=== PATIENT | female | born 1940 | race Caucasian/White ===

== ENCOUNTER 2016-10-19 07:03 | Inpatient (IN) | payer MEDICARE, OTHER ==
[~2016-10-19] VITALS: Ht 170.2 cm; Wt 64.7 kg
--- NOTE | 2016-10-19 07:15 | ED.REPORT ---
HPI-Trauma Minor / Fall Date of Service Oct 19, 2016 ED Provider: Nilo Hayes MD History of Present Illness: OCC A 76 year old female with a history of Alzheimer's disease is brought to the ED via EMS due to a fall. The pt reportedly fell on her right side while being assisted out of bed this morning. The pt reports hitting her head and now has mild head pain. She also admits to right arm pain. Per medics, the pt initially complained of right hip pain and was given pain medications. They found the right leg shortened and rotated. The pt resides in [facility]. Her last meal was yesterday. Nursing Notes Stated Complaint: FALL Nursing Notes Reviewed: Yes ([place], [employer] not reconciled) Allergies: Coded Allergies: Sulfa (Sulfonamide Antibiotics) (Verified Allergy, Severe, 10/19/16) General Time Seen by MD: 07:14 Chief Complaint Fall Hx Obtained From: Patient, EMS Arrived By: Ambulance Onset Occurred: 31 - 45 minutes ago Recent Healthcare: Recent doctor visit Similar Sx Previous: No Risk Factors Head CT Imaging Inclusion Criteria: >/= 16 yo age Patient Presents WITHOUT: Loss of Conciousness, PostTraumatic Amnesia Consider Non Contrast CT for: >/= 60 yo Age WITHOUT LOC WITHOUT PostTrauma AmnesiNo Auto vs Pedestrian, No Fall > 3ft., No Severe Headache, No Vomiting RF Statements: Risk factors reviewed Past Medical History Past Medical History Alzheimer's disease Hypertension Hypothyroidism Hyperlipidemia Past Surgical History none reported Smoking History Never Smoker Social History Other Social History: Lives in prison ([place]) Ambulatory Status Walker Review of Systems Unable to Obtain ROS Mental status Physical Exam Initial Vital Signs Vital Signs (First) Date Time Temp Pulse Resp B/P Pulse Ox O2 Delivery O2 Flow Rate FiO2 10/19/16 07:17 36.1 89 16 167/67 98 Room Air Initial VS: Reviewed, Unavailable General/Constitutional: Awake, Alert severely demented Neck: Atraumatic, Supple, Full range of motion Head / Eyes: Atraumatic, Normocephalic, PERRL, EOMI ENT: Atraumatic, Airway patent, Mucous membranes moist Respiratory / Chest: Atraumatic, Breath sounds NL, Breath sounds = bilat, No respiratory distress Cardiovascular: Heart rate NL, Regular rhythm, Heart sounds NL Abdomen: Atraumatic, Soft, Non-tender Back: Atraumatic, Full range of motion Upper Extremity / MS: Neurologic intact, Vascular intact can pronate and supinate the right elbow without clinical sign of fracture decreased range of motion of the right arm Lower Extremity / Pelvis / MS: Neurologic intact, Vascular intact shortened right leg with painful movement concerning for hip fracture Skin: Color NL, No rash, Warm, Dry abrasion on the nose abrasion on the right distal humerus Neurologic: Speech NL, No motor deficits, No sensory deficits Psychiatric: Affect NL, Mood NL Interpretation & Diagnostics Interpretation & Diagnostics: Right Humerus X-Ray: IMPRESSION: 1. Limited study demonstrates no definite fracture. Dictated by: Tawanda Nowak M.D. on 10/19/2016 at 8:30 Approved by: Tawanda Nowak M.D. on 10/19/2016 at 8:32 Hip/Pelvis X-Ray: IMPRESSION: 1. Comminuted and displaced right intertrochanteric fracture of the proximal femur as described. Dictated by: Tawanda Nowak M.D. on 10/19/2016 at 8:32 Approved by: Tawanda Nowak M.D. on 10/19/2016 at 8:34 Lab Results Interpretation Result Diagram: 10/19/16 0836 10/19/16 0836 Test 10/19/16 08:36 White Blood Count 9.7th/mm3 (3.8-10.1) Red Blood Count 3.83mil/mm3 (3.90-5.20) Hemoglobin 11.3g/dL (12.0-15.6) Hematocrit 33.5% (35.0-46.0) Mean Corpuscular Volume 87.5fL (81-100) Mean Corpuscular Hemoglobin 29.5pg (27.0-35.0) Mean Corpuscular Hemoglobin Concent 33.7% (32.0-37.0) Red Cell Distribution Width 14.5% (12.3-15.4) Platelet Count 267bil/L (150-400) Neutrophils (%) (Auto) 85.7% (40-74) Lymphocytes (%) (Auto) 8.1% (14-46) Monocytes (%) (Auto) 4.3% (4-12) Eosinophils (%) (Auto) 1.5% (0-5) Basophils (%) (Auto) 0.2% (0-3) Prothrombin Time 10.7sec (8.1-12.5) Prothromb Time International Ratio 1.00ratio Activated Partial Thromboplast Time 30.1sec (22.8-33.0) Sodium Level 137mEq/L (134-144) Potassium Level 4.3mEq/L (3.5-5.2) Chloride Level 102mEq/L (97-108) Carbon Dioxide Level 21mmol/L (18-29) Blood Urea Nitrogen 33mg/dL (8-27) Creatinine 1.10mg/dL (0.57-1.00) Estimat Glomerular Filtration Rate 69mL/min (>59) Glucose Level 163mg/dL (60-99) Calcium Level 8.9mg/dL (8.5-10.1) Total Bilirubin 0.2mg/dL (0.0-1.2) Aspartate Amino Transf (AST/SGOT) 16U/L (0-50) Alanine Aminotransferase (ALT/SGPT) 5U/L (0-32) Alkaline Phosphatase 109U/L (25-165) Total Protein 5.9g/dL (6.4-8.4) Albumin 3.6g/dL (3.4-5.0) Lab Results Interpretation: CBC normal Mild renal insufficiency X-Ray Chest Interpretation Chest Xray Interpretation: IMPRESSION: 1. Findings likely related to prior right upper lobectomy, with no prior postoperative films available for comparison. 2. Soft tissue fullness in the right hilum. Recurrent or metastatic disease cannot be excluded. Recommend comparison with prior outside studies or further evaluation with CT. Dictated by: Tawanda Nowak M.D. on 10/19/2016 at 8:34 Approved by: Tawanda Nowak M.D. on 10/19/2016 at 8:37 Interpretation / Wet Read by: Interpret - Radiologist CT Head Interpretation IMPRESSION: 1. No intracranial hemorrhage or calvarial fracture. 2. Age-related atrophy and chronic deep white matter ischemic changes. Atherosclerosis. Dictated by: Thierry Albright M.D. on 10/19/2016 at 8:16 Approved by: Thierry Albright M.D. on 10/19/2016 at 8:20 Interpretation / Wet Read by: Interpret - Radiologist Re-Eval/Medical Decision Med Decision/Clinical Course This is a 76-year-old demented female sent from [facility] after a ground- level fall that occurred as a return help her out of bed. The patient's unable provide any additional history, but is noted to have pain in the right hip, shortened and externally rotated right leg. Also some soreness in the right arm and bruising, as well as an abrasion to the face. Records obtained from the nursing facility indicate the patient is not on any anti-quadrants. Recall last oral intake was yesterday. A noncontrast head CT of the brain was negative. Plain radiographs of the humerus were negative for fracture. I do not appreciate an elbow or other fracture. However clinically the patient does have a right hip fracture. Abdomen no open wounds. The foot is neurovascularly intact. Plain radiographs demonstrate a displaced comminuted right intertrochanteric hip fracture. Pichardo has been ordered. The patient received titrated pain medication with fentanyl with good effect. The case is discussed with orthopedics and orthopedic repair later today as anticipated. The patient's being admitted to the hospitalist service for continued management. Source of Hx: Old records Re-Evaluation/Progress : Time of Eval: 07:14 Re-Evaluation/Progress Note: Pt informed of the plan for admission during the initial interview. Consultation #1: Consulted With: Orthopedic Call Returned at: 08:28 Make Up Operator Helper: Agrees with eval, Agrees with plan Note: Spoke with Dr. Anderson, orthopedic surgeon, regarding pt's case. Dr. Anderson agrees with the evaluation and agrees to consult. Consultation #2: Referral / Consult Name: Cam Mauro MD Consulted With: Hospitalist Call Returned at: 11:12 Note: Spoke with Dr. Mauro, hospitalist, regarding pt's case. Dr. Mauro agrees with the evaluation and agrees to admit the pt. Counseled Regarding: Diagnosis, Lab results, Need for admission Discharge & Departure Impression: Primary Impression: Closed right hip fracture Encounter type: initial encounter Qualified Code: S72.001A - Fracture of unspecified part of neck of right femur, initial encounter for closed fracture Additional Impressions: Fall from ground level Abrasion of right arm Encounter type: initial encounter Qualified Code: S40.811A - Abrasion of right upper arm, initial encounter Abrasion of face Encounter type: initial encounter Qualified Code: S00.81XA - Abrasion of other part of head, initial encounter Disposition: ADMITTED TO HOSPITAL Discharge Condition All VS Reviewed: Yes Condition: Stable Referrals: Maria Ines Giordano PA-C (PCP) Velia Nance MD (Family) Scribe Attestation Portions of this note were transcribed by Feliciano Guevara. I, Dr. Hayes personally performed the history, physical exam and medical decision-making; I reviewed and confirmed the accuracy of the information in the transcribed note. copies to: Maria Ines Giordano PA-C; Velia Nance MD, Matthew F MD Oct 19, 2016 07:15 FELICIANO GUEVARA Oct 19, 2016 07:26
[2016-10-19 07:17] VITALS: BP 167/67; PULSE 89; RESP 16; O2SAT 98
[2016-10-19] MEDS ORDERED: Lidocaine 2% 6mL Topical Jelly TOPICAL ONE (07:40)
[2016-10-19] MEDS ORDERED: Ondansetron 2 mg/mL 2 mL Inj IVPUSH ONE (07:40)
--- NOTE | 2016-10-19 08:22 | DRSVH ---
PROCEDURE: CT BRAIN WITHOUT CONTRAST ([id number]) INDICATIONS: fall TECHNIQUE: Noncontrast 4.5 mm thick angled axial sections acquired from the foramen magnum to the vertex, with c oronal reformats. COMPARISON: MRI brain 02/10/2016; MR stroke protocol 10/02/2014 FINDINGS: Image quality: Excellent. CSF spaces: Basal cisterns are patent. No extra-axial fluid collections. The ventricles are symmet alessandra in size and shape. Brain: No intracranial bleeds or masses. There is cerebral volume loss for age, with resultant vent ricular and sulcal prominence. There are periventricular and deep white matter chronic small vessel ischemic changes. There is intracranial internal carotid artery atherosclerosis. Skull and face: Calvarium and visualized facial bones appear intact, without suspicious lesions. Yazmin nges of prior cataract surgery. Sinuses: Visualized sinuses and mastoids are clear. There is a partially calcified intrinsic mass in the left maxillary sinus along the medial wall anteriorly. Prominent right joelle bullosa. Nasal sep jb deviation to the left. IMPRESSION: 1. No intracranial hemorrhage or calvarial fracture. 2. Age-related atrophy and chronic deep white matter ischemic changes. Atherosclerosis. Dictated by: Thierry Albright M.D. on 10/19/2016 at 8:16 Approved by: Thierry Albright M.D. on 10/19/2016 at 8:20
[2016-10-19] MEDS: fentaNYL-PF 50 mCg/mL 2 mL Inj IVPUSH PRN ×5 (08:26→20:32)
--- NOTE | 2016-10-19 08:37 | DRSVH ---
PROCEDURE: X-RAY RIGHT HUMERUS, MINIMUM TWO VIEWS ([id number]) INDICATIONS: fall TECHNIQUE: 4 views of the humerus were acquired. COMPARISON: [facility], CR, CHEST 1VW, 05/29/2007, 11:53. FINDINGS: Bones: Evaluation is limited due to suboptimal positioning secondary to limited patient movement. N o definite fractures or dislocations. Visualized osseous structures appear osteopenic. Soft tissues: The visualized lung demonstrates confluent opacity in the right upper lung zone. IMPRESSION: 1. Limited study demonstrates no definite fracture. Dictated by: Tawanda Nowak M.D. on 10/19/2016 at 8:30 Approved by: Tawanda Nowak M.D. on 10/19/2016 at 8:32
--- NOTE | 2016-10-19 08:37 | DRSVH ---
PROCEDURE: X-RAY PELVIS W/LAT HIP (RT) ([id number]) INDICATIONS: fall, R hip rotation TECHNIQUE: AP pelvis with frontal and lateral views of the right hip. COMPARISON: None. FINDINGS: Bones: There is a comminuted intertrochanteric fracture of the proximal right femur with mild lateral and anterior displacement. There is also proximal migration with varus angulation. Pelvic ring paula ears intact. No suspicious bony lesions. Soft tissues: The visualized bowel gas pattern is normal. No suspicious soft tissue calcifications. IMPRESSION: 1. Comminuted and displaced right intertrochanteric fracture of the proximal femur as described. Dictated by: Tawanda Nowak M.D. on 10/19/2016 at 8:32 Approved by: Tawanda Nowak M.D. on 10/19/2016 at 8:34
--- NOTE | 2016-10-19 08:38 | DRSVH ---
PROCEDURE: X-RAY CHEST ONE VIEW, PORTABLE ([id number]) INDICATIONS: fall, R hip rotation TECHNIQUE: One view of the chest was acquired. COMPARISON: [facility], , CHEST 1VW, 05/29/2007, 11:53. FINDINGS: Surgical changes and devices: There are surgical clips in the right hilum. Lungs and pleura: There is opacification of the superior right hemithorax with associated volume loss likely related to a right upper lobectomy. There is soft tissue fullness in the right hilum. Left lung appears clear. Mediastinum: There is rightward shift of the mediastinum. Heart size is normal. Bones and chest wall: No suspicious bony lesions. Overlying soft tissues appear unremarkable. IMPRESSION: 1. Findings likely related to prior right upper lobectomy, with no prior postoperative films availab le for comparison. 2. Soft tissue fullness in the right hilum. Recurrent or metastatic disease cannot be excluded. Re commend comparison with prior outside studies or further evaluation with CT. Dictated by: Tawanda Nowak M.D. on 10/19/2016 at 8:34 Approved by: Tawanda Nowak M.D. on 10/19/2016 at 8:37
[2016-10-19 08:50] LABS: BASOPHILS % (AUTO) 0.2 % (0-3); EOSINOPHILS % (AUTO) 1.5 % (0-5); MONOCYTES % (AUTO) 4.3 % (4-12); Mean Corpuscular Hemoglobin 29.5 pg (27.0-35.0); Mean Corpuscular Volume 87.5 fL (81-100); NEUTROPHILS % (AUTO) 85.7 % (40-74); Platelet Count 267 bil/L (150-400)
--- NOTE | 2016-10-19 09:11 | PCM.CONORT ---
Subjective Surgeon Admitting Provider: Attending Provider: Primary Care Physician:Maria Ines Giordano PA-C Other Provider: Reason for Consultation: Right hip pain Allergy Allergies: Coded Allergies: Sulfa (Sulfonamide Antibiotics) (Verified Allergy, Severe, 10/19/16) History History of ENT Problems?: No HEENT History: Denies:: Abnormal Airway Cataracts Difficult Intubation Dysphagia Glaucoma Hearing Problem Sinus Problem TMJ Denture Type: None Teeth Condition: Within Normal Limits Hx of Heart Problems?: No Cardiovascular History: Denies:: AICD Abdominal Aortic Aneurism Atrial Fibrillation Cardiac Surgery Chest Pain Congestive Heart Failure Coronary Artery Disease Edema Heart Murmur Hypertension Irregular Heartbeat Pacemaker Peripheral Vascular Rheumatic Fever Thrombophlebitis Valvular Heart Disease Hx of Respiratory Problem?: No Respiratory History: Denies:: Asthma COPD Chest Surgery Cough Dyspnea Emphysema Hemoptysis Oxygen Administration Pneumonia Pulmonary Embolism Tuberculosis Use of C-PAP Machine Use of Inhalers / NEBS Hx Neurologic Problems?: No Neurological History: Positive for:: Alzheimer's Disease Dementia Hx of GI Problems?: No Gastrointestinal History: Denies:: Cirrhosis Diverticulitis Gall Bladder Disease Gastroesphageal Reflux Gastrointestinal Bleeding Heartburn Hepatitis Hiatal Hernia Liver Disease Rectal Bleeding Hx of Problems?: Yes Genitourinary History: Positive for:: HX of Hemodialysis Kidney Stones Urinary Tract Infection Female Hx: Denies:: Currently Endometriosis Pelvic Inflammatory Problems with Breasts? Skin History: Denies:: History Skin Disorders? Pressure Ulcers Hx Musculoskeletal Problems?: Yes Other History/Comment Kristal Childers is a 76-year-old female patient who presents to our office for orthopedic evaluation of their right hip with ongoing symptoms. The patient states that their pain is a total in nature and mild/moderate in severity localized in the hip and groin without radiation. This has been progressing over the past several hours a fall from standing at her care facility. Moreover , the pain is exacerbated by activities, especially with ambulation and movement. She typically walks with assistance at all times with an occasional walker.. Rest seems to improve the symptoms. Patient reports associated symptoms with some stiffness, some swelling, with some weakness. There is no reports numbness, tingling, or weakness to the affected distal lower extremity. There is no known history of hip problems as a child/adolescent such as SCFE, Perthes, dysplasia, OI, or ligamentous laxity. The patient denies any fever, chills, nausea, vomiting, chest pain, shortness of breath, or calf tenderness. Work/hobbies/sports include: Presents with son who is the power of staff attorney She has a history of cancer with radiation treatment and has generalized weakness to the right side with no history of CVA. Per her son, she has a history of dementia, parkinsonism, and is unable to move her right arm actively given herpes zoster infection 8 years ago after treatment treatment. She has previous had a UTI which was treated and is currently asymptomatic. Psycho Social History: Denies:: Anxiety Bipolar Disorder Hx Depression Suicide Attempt Hx Surgeries?: Yes Other History/Comment TBD Other History: Positive for:: Cancer Smoking Status: Never Smoker Objective Exam Vital Signs & I/O Vital Sign- Last 8 Hours Date Time Temp Pulse Resp B/P Pulse Ox O2 Delivery O2 Flow Rate FiO2 10/19/16 07:17 36.1 89 16 167/67 98 Room Air Lab & Micro Results Laboratory Tests Test 10/19/16 08:36 White Blood Count 9.7th/mm3 (3.8-10.1) Red Blood Count 3.83mil/mm3 (3.90-5.20) Hemoglobin 11.3g/dL (12.0-15.6) Hematocrit 33.5% (35.0-46.0) Mean Corpuscular Volume 87.5fL (81-100) Mean Corpuscular Hemoglobin 29.5pg (27.0-35.0) Mean Corpuscular Hemoglobin Concent 33.7% (32.0-37.0) Red Cell Distribution Width 14.5% (12.3-15.4) Platelet Count 267bil/L (150-400) Neutrophils (%) (Auto) 85.7% (40-74) Lymphocytes (%) (Auto) 8.1% (14-46) Monocytes (%) (Auto) 4.3% (4-12) Eosinophils (%) (Auto) 1.5% (0-5) Basophils (%) (Auto) 0.2% (0-3) Result Diagram: 10/19/16 0836 Review of Systems: Constitutional: Negative, except as otherwise mentioned in the history above. Ophthalmologic: Negative, except as otherwise mentioned in the history above. Cardiovascular: Negative, except as otherwise mentioned in the history above. Respiratory: Negative, except as otherwise mentioned in the history above. Gastrointestinal: Negative, except as otherwise mentioned in the history above. Genitourinary: Negative, except as otherwise mentioned in the history above. Musculoskeletal: Negative, except as otherwise mentioned in the history above. Neurological: Negative, except as otherwise mentioned in the history above. Psychiatric: Negative, except as otherwise mentioned in the history above. Hematologic/Lymphatic: Negative, except as otherwise mentioned in the history above. Allergic/Immunologic: Negative, except as otherwise mentioned in the history above. H&P Surgical Exam Exam Musculoskeletal: CONST: WD,WN, NAD, A+OX3 OCULAR: EOMI, no conjunctivitis/icterus ENT: no deformities, scars or lesions CARDIAC: Pulse is regular. No cyanosis,clubbing,edema RESP: regular,unlabored MSK: normal light touch SPN/DPN/TN distributions. 4+5/5 DF/PF/Inv/Ev, 2+ DP Right HIP - scars.-+swelling, - erythema TTP GT- mild, shortened, external rotated, ROM logroll-painful Strength Deferred - calf tenderness thigh circ-equal, Signs Deferred MSK: normal light touch median, ulnar, radial, lateral antebrachial, axillary nerve distribution. Intact AIN, PIN, u, r, ax motor. C5-T1 intact, 2+ r/u pulse right elbow Small superficial abrasion to the right elbow, unable to range actively, passively 45-90 with pain ROM R/ L Resisted Strength/Pain deferred + painful arc, - crepitus Signs deferred Additional Information Two-view x-ray of the right hip demonstrates displaced intertrochanteric hip fracture with comminuted lesser trochanter avulsion Two-view x-ray of the right humerus demonstrates no grossly acute fracture or dislocation H&P Preop Plan Impression Right hip intertrochanteric fracture, right elbow abrasion with contusion Problems: Risks & Benefits * We have reviewed the risks and benefits as well as the alternatives to surgery. All questions were answered to the patient's satisfaction and a counseling note to that effect. The patient has provided informed consent. * I have counseled the patient regarding the deleterious effects that smoking during the perioperative period can have upon wound healing, infection rates, and the overall rate of complications. Plan Nonweightbearing right lower extremity Pain control recommend dedicated right elbow 3 view x-rays Nothing by mouth for surgery today Recommend left hip closed reduction intramedullary nail fixation Please optimize for surgery today Continue medical management per primary PT/OT DVT prophylaxis with RADHA hose and SCDs preoperatively with Xarelto postoperatively informed consent obtained today by son who is MAURI I reviewed my findings with the patient and her family. The patient remains symptomatic following the initial injury. In light of the ongoing symptoms, our plan is to proceed with surgical intervention. I have explained to the patient the nature of the surgery as well as the perioperative recovery including the risks, benefits and alternatives. A clear explanation was given to the patient regarding the condition present, and the available conservative and surgical options. It was emphasized that the risks and benefits of surgery include but are not limited to infection, wound healing problems, damage to adjacent structures such as nerves, blood vessels and tendons, terminal worker disability and pain, arthritis, hypersensitivity, deep vein thrombosis, pulmonary embolism, broken hardware, failure of surgery, need for further procedures at time of surgery or later, loss of limb, heart attack, stroke, and . The patient was given an explanation and the patient voiced understanding of what to expect after the procedure or surgery, the limitations in activities of daily living, the likely duration for post operative recovery and the instructions that are to be followed. At the end the patient was invited to seek clarification or ask further questions but there were none. I have advised the patient first that there are no guarantees as to outcome and that their ultimate improvement is largely based on the extent of the pre-existing underlying pathology. The patient was instructed to be n.p.o. The patients questions were answered and they stated understanding of the nature of the surgical procedure and gave written and verbal consent to proceed. The patient voiced understanding of the entire consultation. Isma Anderson MD Oct 19, 2016 09:11
[2016-10-19] MEDS ORDERED: CRAN500T PO (11:20)
[2016-10-19] MEDS ORDERED: CETI10TA27 PO (11:20)
[2016-10-19] MEDS ORDERED: DOCU-41 PO (11:20)
[2016-10-19] MEDS ORDERED: ACET325T51 PO (11:20)
[2016-10-19 11:28] VITALS: BP 117/53; PULSE 73
[2016-10-19] MEDS ORDERED: LORA1TAB PO (11:36)
[2016-10-19] MEDS ORDERED: ACET-171 PO (11:36)
[2016-10-19] MEDS ORDERED: SENN-133 PO (11:36)
[2016-10-19] MEDS ORDERED: LEVO50TA6 PO (11:36)
[2016-10-19] MEDS ORDERED: RAME8TAB10 PO (11:36)
[2016-10-19] MEDS ORDERED: ROSU5TAB9 PO (11:36)
[2016-10-19] MEDS ORDERED: ACET500C49 PO (11:36)
[2016-10-19 12:15] VITALS: BP 118/56; PULSE 72; RESP 14; O2SAT 96
[2016-10-19 14:17] LABS: APPEARANCE,URINE SLIGHTLY CLOUDY (CLEAR,HAZY); COLOR,URINE STRAW (YELLOW); OCCULT BLOOD,URINE NEGATIVE (NEGATIVE); PH,URINE 5.5 (5.0-8.0); UROBILINOGEN,URINE NORMAL (NORMAL)
[2016-10-19] MEDS ORDERED: HYDROmorphone 0.5 mg/0.5 mL iSecure Syringe IVPUSH PRN (14:45)
[2016-10-19] MEDS ORDERED: Ondansetron 2 mg/mL 2 mL Inj IVPUSH PRN (14:45)
[2016-10-19] MEDS ORDERED: Alum-Mag Hydrox-Simeth 30 mL Suspension PO PRN (14:45)
[2016-10-19 16:15] VITALS: BP 117/68; RESP 18; O2SAT 100
--- NOTE | 2016-10-19 16:29 | PCM.HPMED ---
Subjective Date of Service Oct 19, 2016 Primary Provider: Admitting Physician: Cam Mauro MD Primary Care Physician: Maria Ines Giordano PA-C Attending Physician: Cam Mauro MD Admit Status: From the Emergency Department, Admit to [facility] Team Chief Complaint: Right Leg Pain History of Present Illness: 76 year old pleasant female with a history of Dementia, Alzheimer's disease, cancer with radiation treatment and has generalized weakness to the right side with no history of CVA, HTN, HLD, Hypothyroidism, presenting after mechanical ground level fall sustaining injury to Right Hip and Right Upper Extremity. Pt was being assisted from bed to chair and caregiver lost a hold of her. She did hit her head, No LOC. Pt lives at [facility]. Pt was initially seen in Ortho Office. RLE found to be shortened with suspicion of fracture. Review of Systems: Could not obtain due to dementia. Pt did endorse pain in R Leg and Arm Allergies Coded Allergies: Sulfa (Sulfonamide Antibiotics) (Verified Allergy, Severe, 10/19/16) Home Medications Cetirizine 10 po am Docusate 100mg po prn qd Levothyroxine Lorazepam 1mg 0.5MG po hs prn Ramelteon 8mg po hs Rosuvastatin 5mg po qd Senna prn PMH Dementia, Alzheimer's disease, cancer with radiation treatment and has generalized weakness to the right side with no history of CVA, HTN, HLD, Hypothyroidism Surgical History RUL Lobectomy Family History No family of heart disease known Social History Hx Alcohol Use: Yes ("Very rarely") Hx Substance Use: No Hx Tobacco Use: No Smoking Status: Never Smoker Living Arrangement: Assisted Living Exam Vital Signs Vital Sign - Last Date Time Temp Pulse Resp B/P Pulse Ox O2 Delivery O2 Flow Rate FiO2 10/19/16 16:15 18 117/68 100 10/19/16 12:15 72 10/19/16 07:17 36.1 Room Air Exam Gen: NAD, AOx1- Baseline, dementia. HEENT: NCAT, PERRLA, EOMI, MMM, sclera anicteric. Neck: Soft, supple, no thyromegaly/JVD/LAD. Resp: CTAB, no R/R/W. CV: S1 S2, RRR, No M/R/G Abd: Soft, (+) BS, NT/ND, no guarding/rebound/organomegaly. Ext: +PP, No edema. RUE- TTP, dec ROM due to pain. RLE- +TTP, Leg shortened. Dec ROM. Skin: Skin tear R Elbow, Abrasion on nose. Neuro/Psych: Cooperative, appr mood/affect. CN II-XII grossly intact. No focal deficits. Lab and Diagnostics Result Diagram: 10/19/16 0836 10/19/16 0836 X-Rays, CTs and MRIs 10/19/16 0724 X-RAY PELVIS W/LAT HIP There is a comminuted intertrochanteric fracture of the proximal right femur with mild lateral and anterior displacement. There is also proximal migration with varus angulation. Pelvic ring appears intact. No suspicious bony lesions. Soft tissues: The visualized bowel gas pattern is normal. No suspicious soft tissue calcifications. IMPRESSION: 1. Comminuted and displaced right intertrochanteric fracture of the proximal femur as described. 10/19- X-RAY CHEST ONE VIEW, PORTABLE 1. Findings likely related to prior right upper lobectomy, with no prior postoperative films available for comparison. 2. Soft tissue fullness in the right hilum. Recurrent or metastatic disease cannot be excluded. Recommend comparison with prior outside studies or further evaluation with CT. Assessment & Plan 76 year old pleasant female with a history of Dementia, Alzheimer's disease, cancer with radiation treatment and has generalized weakness to the right side with no history of CVA, HTN, HLD, Hypothyroidism, presenting after mechanical ground level fall sustaining Right hip intertrochanteric fracture- #Right hip intertrochanteric fracture- POA, active. plan for Closed reduction intramedullary nail fixation. Surgery Recs- Nonweightbearing right lower extremity preop. NPO, -Post-Op Will need PT/OT. - DVT prophylaxis with RADHA hose and SCDs preoperatively with Xarelto postoperatively #Fall from Ground Level, mechanical- POA, active.. Pt has baseline weakness or RUE/RLE per son. Needs assistance from chair, fall occurred during lift. Sustained R Hip Fx and R See plan above. #ALEJO- present on admit, active. Scr 1.1 on admit. No known history of CKD. May be prerenal. Will continue with IVF. Get records from facility to obtain baseline Scr. #Hx of Lung Cancer s/p RUL Lobectomy- chronic stable. CXR- Soft tissue fullness in the right hilum. Recurrent or metastatic disease cannot be excluded. Recommend comparison with prior outside studies or further evaluation with CT #Alzheimer's disease- chronic stable- pt's hm med Ramelteon 8mg po hs not carried by pharmacy. Will ask son to bring in from home. Pt takes Lorazepam for insomnia, will hold for now to avoid delirum. Can give if agitated. #HLD- chronic, stable. c/w hm med statin once can take PO. #Hypothyroidism- chronic, stable. c/w hm med Levothyroxine CODE- Full, per son who is DOA. Son will bring in advanced directives. Pain Evaluation: Adequate Pain Control GI Prophylaxis: H2 bertha (r) VTE Mechanical Devices: Intermittant Pneumatic CD Resuscitation Status: CPR: Attempt Resuscitation Cam Mauro MD Oct 19, 2016 16:29
--- NOTE | 2016-10-19 16:38 | NUR ---
Pain/report Pt reporting pain "5/10" consistently. IV fentanyl given with positive results, but didn't last long. Pt having increasing R hip pain and Dilaudid given with minimal noticeable results. Pt's son at bedside and reports that patient has chronic R arm pain. Continue to monitor. Report called to Layne QUINONEZ.
[2016-10-19 16:40] VITALS: BP 137/64; PULSE 94; RESP 18; O2SAT 96
--- NOTE | 2016-10-19 16:45 | NUR ---
Admit Pt comes from ER with Right Fx hip wand right elbow skin tear. Alert to self, family, place & situation. Baseline dementia and baseline right sided weakness with right arm almost flacid. Denies numbness or tingling of finger or toes. Fx extremity pink and warm to touch. Denies CHest pain, nausea, or SOB. Endorses pain 5/10 at all times. Grimaces at times. Care continues Son at bedside
[2016-10-19] MEDS ORDERED: LORazepam 0.5 mg Tablet PO PRN (16:50)
[2016-10-19] MEDS ORDERED: Glucose 40% Oral Gel 15 Gm Tube PO PRN (17:10)
[2016-10-19] MEDS: Insulin LISPRO 300 Unit/3 mL Inj SUBQ SCH ×2 (17:30→21:59)
[2016-10-19] MEDS ORDERED: Dextrose 10% 250 ML IV PRN (17:35)
[2016-10-19] MEDS: cefTRIAXone Inj 1,000 MG in Dextrose 5% Minibag Plus 50 ML IV SCH (18:10)
[2016-10-19] MEDS: 0.9% Sodium Chloride 1,000 ML IV SCH (18:10)
[2016-10-20] VITALS (14 sets, daily range): BP systolic 96–133; BP diastolic 54–77; PULSE 96–110; RESP 12–18; O2SAT 96–100
--- NOTE | 2016-10-20 01:13 | NUR ---
Pain/ hourly rounding Patient received single dose of pain medication and has denied pain each round since, currently sleeping soundly. Bed in low position, call light within reach, intentional rounding.
[2016-10-20] MEDS: fentaNYL-PF 50 mCg/mL 2 mL Inj IVPUSH PRN ×2 (03:07→12:40)
[2016-10-20] MEDS: 0.9% Sodium Chloride 1,000 ML IV SCH ×3 (05:16→22:56)
[2016-10-20 05:35] LABS: BASOPHILS % (AUTO) 0.1 % (0-3); EOSINOPHILS % (AUTO) 0.2 % (0-5); MONOCYTES % (AUTO) 9.3 % (4-12); Mean Corpuscular Hemoglobin 28.6 pg (27.0-35.0); Mean Corpuscular Volume 87.6 fL (81-100); NEUTROPHILS % (AUTO) 81.6 % (40-74); Platelet Count 247 bil/L (150-400)
[2016-10-20] MEDS: Insulin LISPRO 300 Unit/3 mL Inj SUBQ SCH ×4 (08:00→22:00)
[2016-10-20] MEDS ORDERED: Ondansetron 2 mg/mL 2 mL Inj ONE (10:56)
[2016-10-20] MEDS ORDERED: FENTANYL 50 MCG/ML ONE (10:56)
[2016-10-20] MEDS ORDERED: Phenylephrine/NS 100 mCg/mL 10 mL Syringe IVPUSH ONE (10:56)
--- NOTE | 2016-10-20 12:48 | PCM.HPANE ---
Patient Data Surgeon Admitting Provider:Cam Mauro MD Attending Provider:Cam Mauro MD Primary Care Physician:Maria Ines Giordano PA-C Other Provider: Reason for Visit Rt Hip Fracture Ht/WT & BMI Height (Feet): 5 Height (Inches): 7.00 Weight (Kilograms): 64.700 Body Mass Index 22.39 Allergies Coded Allergies: Sulfa (Sulfonamide Antibiotics) (Verified Allergy, Severe, 10/19/16) Past Anesthesia History Anesthesia History: Denies:: Abnormal Airway, Anesthesia Reactions, Difficult Intubation Diabetes History Hx Diabetes?: Yes (prediabetic) Current Bedside Blood Glucose: 113 MRSA MRSA: Yes Medications Hypertension Medication: No Home Meds Incl Beta Elle: No Reported Medications Acetaminophen 500 Mg [id number] Mg PO Q4H PRN For Pain 10/19/16 Lorazepam 1 Mg Tablet0.5 Mg PO HS PRN For Insomnia Ref 0 10/19/16 Sennosides (Senna)8.6 Mg Brzwja37.2 Mg PO HS PRN For Constipation 10/19/16 Ramelteon (Rozerem)8 Mg Tablet8 Mg PO HS 10/19/16 Rosuvastatin Calcium 5 Mg Tablet5 Mg PO DAILY 10/19/16 Levothyroxine 50 Mcg Adbqru64 Mcg PO DAILY Ref 0 10/19/16 Docusate Sodium (Colace)100 Mg [id number] Mg PO HS PRN For Constipation Ref 0 10/19/16 Cranberry Fruit (Cranberry)500 Mg Tab.jfyk544 Mg PO DAILY 10/19/16 Cetirizine HCl (All Day Allergy)10 Mg Tab.chew10 Mg PO MORNING 10/19/16 Acetaminophen 325 Mg [id number] Mg PO MORNING Ref 0 10/19/16 Discontinued Reported Medications Acetaminophen 500 Mg Tnlvvd269 Mg PO Q4H PRN For Pain 10/19/16 History History of ENT Problems?: No HEENT History: Positive for:: Sinus Problem Denies:: Abnormal Airway Cataracts Difficult Intubation Dysphagia Glaucoma Hearing Problem TMJ Denture Type: None Teeth Condition: Within Normal Limits Hx of Heart Problems?: No Cardiovascular History: Denies:: AICD Abdominal Aortic Aneurism Atrial Fibrillation Cardiac Surgery Chest Pain Congestive Heart Failure Coronary Artery Disease Edema Heart Murmur Hypertension Irregular Heartbeat Pacemaker Peripheral Vascular Rheumatic Fever Thrombophlebitis Valvular Heart Disease Hx of Respiratory Problem?: Yes Respiratory History: Positive for:: Pneumonia Denies:: Asthma COPD Chest Surgery Cough Dyspnea Emphysema Hemoptysis Oxygen Administration Pulmonary Embolism Tuberculosis Use of C-PAP Machine Use of Inhalers / NEBS Other Resp Pertinent History: History of lung cancer, R lobectomy Hx Neurologic Problems?: Yes Neurological History: Positive for:: Dementia Parkinson's Disease (Parkinson symptoms) Denies:: Alzheimer's Disease CVA Dizziness Headaches Seizures Hx of GI Problems?: No Hx of Problems?: Yes Genitourinary History: Positive for:: Urinary Tract Infection Denies:: HX of Hemodialysis Kidney Stones HX of Peritoneal Dialysis: No Female Hx: Denies:: Currently Endometriosis Pelvic Inflammatory Problems with Breasts? Skin History: Denies:: History Skin Disorders? Pressure Ulcers Hx Musculoskeletal Problems?: No Musculoskeletal History: Denies:: Back Injury Joint Replacement Hx of Psycho/Social Problems?: No Psycho Social History: Positive for:: Anxiety Hx Depression Denies:: Bipolar Disorder Suicide Attempt Hx Surgeries?: Yes (bowel impaction) Other History: Positive for:: Cancer (lung cancer) Thyroid Disease History Blood Transfusions: Positive for:: Accept Blood Products? Denies:: Blood Transfusions Hx Diabetes: Yes (prediabetic)Bedside Blood Glucose: 113 Hx Alcohol Use: Yes ("Very rarely")Hx Substance Use: No Smoking Status: Never Smoker Stop/Bang Treated for Sleep Apnea?: No Do You Have a CPAP Machine?: No S-Snoring: Do You Snore Loudly: No T-Tired: feel tired, fatigued: Yes O-Obsered: Observed not breath: No P-Blood Pressure: treated: No B- Body Mass Index > 35 kg/m2: No A- Age over 50: Yes N- Neck Large Circumference: No G- Gender Male: No JENNIE Total Score: 1 JENNIE Risk Assessment: Low Risk, <3 Yes Risk Assessment Category Category 1A: Patient has history of documented sleep apnea, and HAS NOT received any narcotic, sedative or anesthesia administration during this stay. Category 1B: Patient has history of documented sleep apnea, and HAS received any narcotic , sedative or anesthesia administration during this stay Category 2: Patient has SUSPECTED Obstructive Sleep Apnea, and HAS received any narcotic , sedative or anesthesia administration during this stay. Category 3: Patient has SUSPECTED Obstructive Sleep Apnea and HAS NOT received narcotic, sedative or anesthesia administration during this stay. Category 4: Outpatient in Procedural Areas with known sleep apnea or who screen positive for High Risk via the STOP/BANG questionnaire. Exam Exam General Appearance: Oriented X3 HEENT/AIRWAY: MP 1 Lungs: Normal Air Movement Heart: Regular Rate/Rhythm Meds/Labs/Diagnostics Admission Meds Current Medications Rosuvastatin Calcium 5 mg 5 mg DAILY PO Last administered on 10/19/16 21:59; Start 10/19/16 at 20:30 Ceftriaxone Sodium 1000 mg/ Dextrose/Water 50 ml @ 100 mls/hr Q24H IV Last administered on 10/19/16 18:10; Start 10/19/16 at 18:00 Sodium Chloride (Normal Saline) 1,000 ml @ 100 mls/hr Q10H IV Last administered on 10/20/16 05:16; Start 10/19/16 at 17:25 Bedside Blood Glucose: 113 Labs Test 10/19/16 08:36 10/19/16 14:00 10/20/16 04:40 Prothrombin Time 10.7sec (8.1-12.5) Prothromb Time International Ratio 1.00ratio Activated Partial Thromboplast Time 30.1sec (22.8-33.0) Total Bilirubin 0.2mg/dL (0.0-1.2) Aspartate Amino Transf (AST/SGOT) 16U/L (0-50) Alanine Aminotransferase (ALT/SGPT) 5U/L (0-32) Alkaline Phosphatase 109U/L (25-165) Total Protein 5.9g/dL (6.4-8.4) Albumin 3.6g/dL (3.4-5.0) Urine Color Straw (YELLOW) Urine Appearance Slightly cloudy Urine pH 5.5 (5.0-8.0) Urine Specific [place] 1.020 (1.003-1.035) Urine Protein Negativemg/dL (NEG,TRACE) Urine Glucose (UA) Negativemg/dL (NEGATIVE) Urine Ketones Negativemg/dL (NEGATIVE) Urine Occult Blood Negative (NEGATIVE) Urine Nitrite Positive (NEGATIVE) Urine Bilirubin Negative (NEGATIVE) Urine Urobilinogen Normalmg/dL (NORMAL) Urine Leukocyte Esterase Moderate (NEGATIVE) Urine RBC 0-2/hpf (0-2) Urine WBC >50/hpf (0-5) Urine Epithelial Cells Occasional/hpf (NONE-MOD) Urine Crystals None seen (NONE SEEN) Urine Bacteria Many/hpf (NONE-FEW) Urine Hyaline Casts None/lpf (NONE) Urine Granular Casts None seen (NONE SEEN) Urine Waxy Casts None seen (NONE SEEN) Urine Red Blood Cell Casts None seen (NONE SEEN) Urine White Blood Cell Casts None seen (NONE SEEN) Urine Mucus Present (None Seen) Urine Trichomonas None seen (NONE SEEN) Urine Yeast None (NONE SEEN) Urinalysis Comment None Urine Culture Reflexed Indicated White Blood Count 8.5th/mm3 (3.8-10.1) Red Blood Count 3.15mil/mm3 (3.90-5.20) Hemoglobin 9.0g/dL (12.0-15.6) Hematocrit 27.6% (35.0-46.0) Mean Corpuscular Volume 87.6fL (81-100) Mean Corpuscular Hemoglobin 28.6pg (27.0-35.0) Mean Corpuscular Hemoglobin Concent 32.6% (32.0-37.0) Red Cell Distribution Width 14.6% (12.3-15.4) Platelet Count 247bil/L (150-400) Neutrophils (%) (Auto) 81.6% (40-74) Lymphocytes (%) (Auto) 8.7% (14-46) Monocytes (%) (Auto) 9.3% (4-12) Eosinophils (%) (Auto) 0.2% (0-5) Basophils (%) (Auto) 0.1% (0-3) Sodium Level 137mEq/L (134-144) Potassium Level 4.8mEq/L (3.5-5.2) Chloride Level 103mEq/L (97-108) Carbon Dioxide Level 21mmol/L (18-29) Blood Urea Nitrogen 30mg/dL (8-27) Creatinine 0.96mg/dL (0.57-1.00) Estimat Glomerular Filtration Rate 81mL/min (>59) Glucose Level 106mg/dL (60-99) Calcium Level 8.5mg/dL (8.5-10.1) Plan Impression Patient chart reviewed, patient interviewed and anesthestic plan with risks, benefits, and alternatives discussed, and informed consent obtained. ASA Physical Status: ASA3 Severe Disease Anesthetic Plan: GA Bene/Risks/Altern/Consents: Yes HP Complete Prior to Induction: Yes Maxime Javier MD Oct 20, 2016 12:48
--- NOTE | 2016-10-20 13:00 | NUR ---
OR Pt cleansed with chlorhex wipes prior to Sx. Fentanyl give prior to moving pt to get gown on. SL for transport. Family at bedside. Pt leaves floor for Sx with family at bedside.
[2016-10-20] MEDS ORDERED: Ropivacaine-PF 0.5% 30 mL Inj EPIDURAL ONE (13:43)
[2016-10-20] MEDS ORDERED: Vancomycin 1,000 mg Inj IRRIGATION ONE (13:43)
[2016-10-20] MEDS ORDERED: Lactated Ringer's 1,000 ML IV ONE (13:44)
[2016-10-20] MEDS ORDERED: Bacitracin 50,000 unit Inj IRRIGATION ONE (14:47)
--- NOTE | 2016-10-20 15:11 | PCM.PNMED ---
Subjective Date of Service Oct 20, 2016 Subjective Pt going to OR this AM. Denies pain but does grimace per nurse. Exam Vital Signs Vital Sign - Last Date Time Temp Pulse Resp B/P Pulse Ox O2 Delivery O2 Flow Rate FiO2 10/20/16 12:57 36.6 99 16 125/77 98 Room Air Intake and Output 10/19/16 10/19/16 10/20/16 Cumulative From/Thru 15:00 23:00 07:00 10/19/16 17:07 - 10/20/16 05:47 Intake Total 490 ml 1177 ml 1667 ml Output Total 750 ml 0 ml 750 ml Balance -260 ml 1177 ml 917 ml Intake Oral 490 ml 100 ml 590 ml IV Total 1077 ml 1077 ml Output Urine Total 750 ml 0 ml 750 ml Exam Gen: NAD, AOx1- Baseline, dementia. HEENT: NCAT, PERRLA, EOMI, MMM, sclera anicteric. Neck: Soft, supple, no thyromegaly/JVD/LAD. Resp: CTAB, no R/R/W. CV: S1 S2, RRR, No M/R/G Abd: Soft, (+) BS, NT/ND, no guarding/rebound/organomegaly. Ext: +PP, No edema. RUE- TTP, dec ROM due to pain. RLE- +TTP, Leg shortened. Dec ROM. Skin: Skin tear R Elbow, Abrasion on nose. Neuro/Psych: Cooperative, appr mood/affect. CN II-XII grossly intact. No focal deficits. IVs and Medications Medications Reviewed: Medications were reviewed in detail Lab and Diagnostics Result Diagram: 10/20/1643910/20/16439 Microbiology Laboratory Tests Test 10/20/16 04:40 White Blood Count 8.5th/mm3 (3.8-10.1) Red Blood Count 3.15mil/mm3 (3.90-5.20) Hemoglobin 9.0g/dL (12.0-15.6) Hematocrit 27.6% (35.0-46.0) Mean Corpuscular Volume 87.6fL (81-100) Mean Corpuscular Hemoglobin 28.6pg (27.0-35.0) Mean Corpuscular Hemoglobin Concent 32.6% (32.0-37.0) Red Cell Distribution Width 14.6% (12.3-15.4) Platelet Count 247bil/L (150-400) Neutrophils (%) (Auto) 81.6% (40-74) Lymphocytes (%) (Auto) 8.7% (14-46) Monocytes (%) (Auto) 9.3% (4-12) Eosinophils (%) (Auto) 0.2% (0-5) Basophils (%) (Auto) 0.1% (0-3) Sodium Level 137mEq/L (134-144) Potassium Level 4.8mEq/L (3.5-5.2) Chloride Level 103mEq/L (97-108) Carbon Dioxide Level 21mmol/L (18-29) Blood Urea Nitrogen 30mg/dL (8-27) Creatinine 0.96mg/dL (0.57-1.00) Estimat Glomerular Filtration Rate 81mL/min (>59) Glucose Level 106mg/dL (60-99) Calcium Level 8.5mg/dL (8.5-10.1) Microbiology 10/19/16 Urine Culture - Preliminary, Resulted X-Rays, CTs and MRIs 10/19/16 0724 X-RAY PELVIS W/LAT HIP There is a comminuted intertrochanteric fracture of the proximal right femur with mild lateral and anterior displacement. There is also proximal migration with varus angulation. Pelvic ring appears intact. No suspicious bony lesions. Soft tissues: The visualized bowel gas pattern is normal. No suspicious soft tissue calcifications. IMPRESSION: 1. Comminuted and displaced right intertrochanteric fracture of the proximal femur as described. 10/19- X-RAY CHEST ONE VIEW, PORTABLE 1. Findings likely related to prior right upper lobectomy, with no prior postoperative films available for comparison. 2. Soft tissue fullness in the right hilum. Recurrent or metastatic disease cannot be excluded. Recommend comparison with prior outside studies or further evaluation with CT. Assessment & Plan 76 year old pleasant female with a history of Dementia, Alzheimer's disease, cancer with radiation treatment and has generalized weakness to the right side with no history of CVA, HTN, HLD, Hypothyroidism, presenting after mechanical ground level fall sustaining Right hip intertrochanteric fracture- #Right hip intertrochanteric fracture- POA, active. plan for Closed reduction intramedullary nail fixation. Surgery Recs- Nonweightbearing right lower extremity preop. NPO, -Post-Op Will need PT/OT. - DVT prophylaxis with RADHA pretty and SCDs preoperatively with Xarelto postoperatively to start in AM on 8. #Fall from Ground Level, mechanical- POA, active.. Pt has baseline weakness or RUE/RLE per son. Needs assistance from chair, fall occurred during lift. Sustained R Hip Fx and R See plan above. #ALEJO- present on admit, active. Scr 1.1 on admit->0.9. No known history of CKD. May be prerenal. Will continue with IVF. #UTI- pt has evidence of pyuria on UA. Due to dementia can't determine if Symptomatic. Will tx as UTI as undergoing surgery. Ceftriaxone for 3 days, started 10/19, unless longer course indicated. #Hx of Lung Cancer s/p RUL Lobectomy- chronic stable. CXR- Soft tissue fullness in the right hilum. Recurrent or metastatic disease cannot be excluded. Recommend comparison with prior outside studies or further evaluation with CT #Alzheimer's disease- chronic stable- pt's hm med Ramelteon 8mg po hs not carried by pharmacy. Will ask son to bring in from home. Pt takes Lorazepam for insomnia, will hold for now to avoid delirum. Can give if agitated. #HLD- chronic, stable. c/w hm med statin once can take PO. #Hypothyroidism- chronic, stable. c/w hm med Levothyroxine CODE- Full, per son who is DOA. Son will bring in advanced directives. GI Prophylaxis: H2 bertha (r) VTE Mechanical Devices: Intermittant Pneumatic CD Resuscitation Status: CPR: Attempt Resuscitation Cam Mauro MD Oct 20, 2016 15:11
[2016-10-20] MEDS ORDERED: Sodium Biphos-Phos 133 mL Enema RECTAL PRN (15:30)
[2016-10-20] MEDS ORDERED: diphenhydrAMINE 25 mg Capsule PO PRN (15:30)
[2016-10-20] MEDS ORDERED: Polyethylene Glycol (PEG) 17 Gm Powder PO PRN (15:30)
[2016-10-20] MEDS ORDERED: Magnesium Hydroxide 10 mL Oral Concentration PO PRN (15:30)
--- NOTE | 2016-10-20 15:40 | PCM.ORTHOP ---
Orthopedic Operative Report Date of Service: Oct 20, 2016 Pre Operative Diagnosis right hip displaced comminuted intertrochanteric fracture Post Operative Diagnosis Same Procedure Right hip closed reduction intramedullary nail fixation Surgeon Surgeon: Isma Anderson Assistants: None Indication for Procedure Right hip fracture Findings Right intertrochanteric hip fracture Details of Procedure Implant: 43H200 deg 400mm right TFNA 95mm lag screw 42mm X5mm locking screw Indications: This is Kristal Childers who is a 76-year-old female status-post a right intertrochanteric hip fracture. The risks versus benefits of open reduction and internal fixation were discussed with the patient in detail. The patient voiced understanding of the risks and agreed to proceed. The risks discussed were pain, bleeding, infection, damage to neurovascular structures, failure of procedure, need for further procedures, loss of limb function, loss of limb, heart attack, stroke, and . Verbal and written consent were obtained. Description of Operation: The patient was brought to the operating room. Patient name and surgical site were confirmed. Preoperative antibiotics were given. General anesthesia was administered. The patient was placed supine on the fracture table in the standard fashion. All bony prominences were well padded. Traction was applied to the operative leg and the fracture was closed reduced under C-arm guidance. The leg and hip were then prepped and draped in the usual sterile fashion. A small longitudinal incision was made proximal to the greater trochanter. Subcutaneous dissection was bluntly performed down to the tip of the greater trochanter. A 3.2 mm guide pin was then placed through the tip of the greater trochanter and into the femoral canal under fluoroscopic guidance. This was checked in both AP and lateral views. This pin was then over-reamed with a 17 mm reamer. The ball tipped guide wire was placed into the medullary canal and advanced into the center of the distal metaphysis. The guide wire was then over-reamed in 0.5 mm increments until bony chatter was achieved at the isthmus. A tire gauge was used to determine the length of the nail. The nail implant was loaded onto the insertion jig and then gently malleted into position over the guide wire. The fracture was well reduced as confirmed with C-arm in AP and lateral views. The guide was removed. The guide pin for the hip screw was inserted to a point within 25 mm tip-to-apex distance on AP and lateral views. A hip screw size was selected along with a compression screw. The lateral cortex was drilled for the compression screw. The guide pin was then overdrilled and the hip screw was inserted with clear compression at the fracture once the compression screw inserted and engaged. The traction was removed and orthogonal views with fluoroscopy determined reduction of our fracture with appropriate placement of hip screw centered with a tip-to-apex distance less than 25 mm. The distal interlocking screw was then inserted in the standard fashion using the perfect [place] technique under C-arm guidance. All wounds were thoroughly irrigated by bulb irrigation. Hemostasis was obtained with electrocautery. The fascia was closed with 0 Vicryl suture. The subcutaneous space was closed with interrupted 2-0 Vicryl suture. The skin was closed with interrupted peggy. Hard copy radiographs confirmed adequate reduction and placement of hardware. The patient was extubated without difficulty and transferred to the PACU in stable condition. I was present and scrubbed for the entire procedure. You may weight bear as tolerated. Keep your wound clean, dry and intact. We will change your dressing in 2 days and continue daily dressing changes. PT/OT will be ordered. Return to clinic in 2 weeks with me with 2 view x-rays and staple/suture removal with Steri-Strips application. You may get your wound wet at that time. We will progress weightbearing to full without restrictions once radiographic healing noted at 6-10 weeks. Please keep the affected extremity elevated when possible. You may use ice and/or heat as needed for comfort. All questions and concerns were addressed. Please feel free to call with any further questions, comments, and/or concerns. You will take Xarelto 10mg X 35 days Grafts, Implants: Implants-See Implant Record Complications There were no periprocedural complications identified. Condition Stable Anesthetic Administered: GA Catheters: None Output, Estimated Blood Loss: 10 Blood Admin during surgery: No Surgical Cast or Splint: Other Surgical Specimen Removed: No Specimen sent to Pathology: No copies to: Isma Anderson MD, Christopher L MD Oct 20, 2016 15:40
--- NOTE | 2016-10-20 16:38 | NUR ---
Patient returned from Sx. Addendum: 10/20/16 at 1735 by MILTON GARCIA Pt. on RA, no chest pain, no SOB, no complaints of pain. R hip dressing clean, dry, bulky ABD. SCD placed on L leg.
[2016-10-20] MEDS ORDERED: Lactated Ringer's 1,000 ML IV SCH (16:45)
[2016-10-20] MEDS ORDERED: Phenylephrine 10,000 mCg/mL Inj IVPUSH PRN (16:45)
[2016-10-20] MEDS ORDERED: Lactated Ringer's 500 ML IV PRN (16:45)
[2016-10-20] MEDS ORDERED: Dexamethasone 4 mg/mL Inj IVPUSH PRN (16:45)
[2016-10-20] MEDS ORDERED: EPHEDrine Sulfate 50 mg/mL Inj IVPUSH PRN (16:45)
[2016-10-20] MEDS ORDERED: HYDROmorphone 1 mg/mL Inj IVPUSH PRN (16:45)
[2016-10-20] MEDS ORDERED: fentaNYL-PF 50 mCg/mL 2 mL Inj IVPUSH PRN (16:45)
[2016-10-20] MEDS ORDERED: Ondansetron 2 mg/mL 2 mL Inj IVPUSH PRN (16:45)
[2016-10-20] MEDS: Lactated Ringer's 1,000 ML IV SCH (17:44)
[2016-10-20] MEDS: CeFAZolin Inj 2 GM in IV Premix 1 EACH IV SCH (17:45)
[2016-10-20] MEDS ORDERED: 0.9% Sodium Chloride 250 ML ONE (20:19)
[2016-10-20] MEDS: cefTRIAXone Inj 1,000 MG in Dextrose 5% Minibag Plus 50 ML IV SCH (20:27)
[2016-10-20] MEDS: Senna-Docusate 8.6-50 mg Tablet PO SCH (20:31)
[2016-10-21] VITALS (8 sets, daily range): BP systolic 90–107; BP diastolic 48–69; PULSE 87–107; RESP 14–18; O2SAT 95–97
[2016-10-21] MEDS: CeFAZolin Inj 2 GM in IV Premix 1 EACH IV SCH (02:53)
[2016-10-21 05:37] LABS: BASOPHILS % (AUTO) 0 % (0-3); EOSINOPHILS % (AUTO) 0.5 % (0-5); MONOCYTES % (AUTO) 16.5 % (4-12); Mean Corpuscular Hemoglobin 29.2 pg (27.0-35.0); Mean Corpuscular Volume 87.9 fL (81-100); NEUTROPHILS % (AUTO) 73.4 % (40-74); Platelet Count 197 bil/L (150-400)
--- NOTE | 2016-10-21 06:11 | NUR ---
ortho Sensation intact. Dressing dry. Denies pain overnight. B/P remains low 93/55 with HR 102 this morning. H/H 7.5 & 22.6 Asymptomatic. PRN Bolus 250ml available for B/p less than 90. IVF LR at 80 infusing.
[2016-10-21] MEDS: Lactated Ringer's 1,000 ML IV SCH ×2 (06:47→18:05)
[2016-10-21] MEDS: Insulin LISPRO 300 Unit/3 mL Inj SUBQ SCH ×4 (08:00→22:00)
[2016-10-21] MEDS: Senna-Docusate 8.6-50 mg Tablet PO SCH ×2 (09:01→21:45)
[2016-10-21] MEDS: Ketorolac 15 mg/mL Inj IVPUSH PRN ×2 (09:03→15:38)
[2016-10-21] MEDS: 0.9% Sodium Chloride 1,000 ML IV SCH ×2 (09:25→19:25)
--- NOTE | 2016-10-21 09:45 | NUR ---
CON signed by son.
[2016-10-21 10:34] LABS: BASOPHILS % (AUTO) 0 % (0-3); EOSINOPHILS % (AUTO) 0.4 % (0-5); Mean Corpuscular Hemoglobin 29.1 pg (27.0-35.0); Mean Corpuscular Volume 88.2 fL (81-100); Platelet Count 176 bil/L (150-400)
--- NOTE | 2016-10-21 11:18 | NUR ---
Evaluation completed. Please go to "Notes" then click on "Assessments and Notes" (bottom left corner of screen). Then select appropriate discipline tab on top of screen.
[2016-10-21] MEDS ORDERED: 0.9% Sodium Chloride 250 ML IV ONE (12:55)
--- NOTE | 2016-10-21 13:05 | PCM.PNORTH ---
Subjective Date of Service: Oct 21, 2016 Visit Information: Reason for Visit Rt Hip Fracture Surgery/Surgery Date Post-Op Day # Date of Admission: Oct 19, 2016 at 14:35 Hospital Day # Subjective Found patient awake this morning with head of bed elevated. Patient is well- positioned. Patient is very minimally communicative and maintains a blank expression. She will attempt to follow directions and does have told movement but this is very difficult to elicit on command. Patient's son, Tal, is in attendance at bedside at all times and is very helpful furnishing a great deal of information. He has related that patient's right arm is essentially nonfunctional secondary to a herpetic neuralgia suffered at some point in her past after cancer treatment. He is aware the patient will likely discharge to fdc facility on postop day #3. Postop General: No Complaints, No Shortness of Breath, No Chest Pain Pain Management: IV Push (Toradol) Objective Exam Objective Alert and minimally interactive Hemoglobin 7.4, hematocrit 22.4 Mildly Hypotensive Borderline tachycardic No SOB noted on physical exam. Interoperative dressing is mildly soiled and intact Calf and thigh are soft and nontender Toe wiggle and sensation are intact at right lower extremity distally Pichardo catheter is present SCDs are absent Bilateral thigh-high RADHA hose are absent Vital Signs and I/O Vital Sign - Last Date Time Temp Pulse Resp B/P Pulse Ox O2 Delivery O2 Flow Rate FiO2 10/21/16 08:32 36.9 101 18 93/60 95 Room Air 10/20/16 15:20 10 Intake and Output 10/20/16 10/20/16 10/21/16 Cumulative From/Thru 15:00 23:00 07:00 10/19/16 17:07 - 10/21/16 06:03 Intake Total 400 ml 300 ml 1060 ml 3427 ml Output Total 200 ml 810 ml 680 ml 2440 ml Balance 200 ml -510 ml 380 ml 987 ml Intake Oral 200 ml 150 ml 940 ml IV Total 400 ml 100 ml 910 ml 2487 ml Output Urine Total 100 ml 800 ml 680 ml 2330 ml Estimated Blood Loss 100 ml 10 ml 110 ml # Bowel Movements 0 0 Lab & Micro Results Laboratory Tests Test 10/21/16 04:37 10/21/16 10:15 White Blood Count 5.8th/mm3 (3.8-10.1) 5.6th/mm3 (3.8-10.1) Red Blood Count 2.57mil/mm3 (3.90-5.20) 2.54mil/mm3 (3.90-5.20) Hemoglobin 7.5g/dL (12.0-15.6) 7.4g/dL (12.0-15.6) Hematocrit 22.6% (35.0-46.0) 22.4% (35.0-46.0) Mean Corpuscular Volume 87.9fL (81-100) 88.2fL (81-100) Mean Corpuscular Hemoglobin 29.2pg (27.0-35.0) 29.1pg (27.0-35.0) Mean Corpuscular Hemoglobin Concent 33.2% (32.0-37.0) 33.0% (32.0-37.0) Red Cell Distribution Width 14.4% (12.3-15.4) 14.5% (12.3-15.4) Platelet Count 197bil/L (150-400) 176bil/L (150-400) Neutrophils (%) (Auto) 73.4% (40-74) 79.0% (40-74) Lymphocytes (%) (Auto) 9.4% (14-46) 8.2% (14-46) Monocytes (%) (Auto) 16.5% (4-12) 12.0% (4-12) Eosinophils (%) (Auto) 0.5% (0-5) 0.4% (0-5) Basophils (%) (Auto) 0% (0-3) 0% (0-3) Microbiology 10/19/16 Urine Culture - Final, Complete E. Coli Esbl Pit Tanner Result Diagram: 10/21/16 1015 10/20/16 0440 General Appearance: Cooperative, No Acute Distress Extremities: No Compartment Syndrom Noted, Thigh & Calf Soft/Nontender Postop Sensory Motor: Movement in Toes, Distal Sensation Intact Activity: Activity per PT, Ambulate with PT (weightbearing as tolerated on the right lower extremity. Note: Patient's right upper extremity is dysfunctional secondary to herpetic neuralgia suffered post cancer treatment. ) Catheters: Urethral 2 Way Pichardo Assessment & Plan Impression Patient is a 76-year-old female who suffered a right hip fracture and undergone a right hip long IM nail placement on 10/20/[address] Isma Anderson. Patient is minimally communicative. Patient's son Tal is in attendance at bedside and is helpful. Problems: Plan Patient is a 76-year-old female who suffered a right hip fracture and undergone a right hip long IM nail placement on 10/20/[address] Isma Anderson. Hemoglobin 7.4, hematocrit 22.4 Mildly Hypotensive Borderline tachycardic No SOB noted on physical exam Continue weightbearing as tolerated on the right lower extremity using appropriate assistive device per physical therapist. Continue formal physical therapy for mobility, gait and safety. Continue pain medication as needed moving to by mouth pain medication as soon as possible. Continue Xarelto 10 mg daily 35 days postop for DVT prophylaxis. Interoperative dressing will be changed by orthopedics on postop day #2 Social service order has been placed for discharge to fdc facility. Nursing please move the patient to by mouth pain medication as soon as possible Nursing please measure and fit bilateral thigh-high RADHA hose as ordered today. Right may be fluid after dressing change on postop day #2. Nursing please fit patient with left SCD. Follow-up in 2 weeks at [facility] orthopedic clinic with Dr. Isma reinoso for wound check and suture removal Follow-up in 6 weeks at [facility] orthopedic clinic with Dr. Isma reinoso with right two-view femur x-rays on arrival. Anticipate discharge to fdc facility by hospitalist service on postop day #3, 10/23/2016. VTE Prophylaxis: Other (Xarelto 10 mg by mouth daily 35 days postop for DVT prophylaxis) Resuscitation Status: CPR: Attempt Resuscitation Luis Miguel Winkler PA-C Oct 21, 2016 13:05
--- NOTE | 2016-10-21 13:40 | PCM.PNMED ---
Subjective Date of Service Oct 21, 2016 Subjective Pt c/o of pain R Hip at site of surgery. Exam Vital Signs Vital Sign - Last Date Time Temp Pulse Resp B/P Pulse Ox O2 Delivery O2 Flow Rate FiO2 10/21/16 13:17 36.9 105 14 90/48 97 Room Air 10/20/16 15:20 10 Intake and Output 10/20/16 10/20/16 10/21/16 Cumulative From/Thru 15:00 23:00 07:00 10/19/16 17:07 - 10/21/16 06:03 Intake Total 400 ml 300 ml 1060 ml 3427 ml Output Total 200 ml 810 ml 680 ml 2440 ml Balance 200 ml -510 ml 380 ml 987 ml Intake Oral 200 ml 150 ml 940 ml IV Total 400 ml 100 ml 910 ml 2487 ml Output Urine Total 100 ml 800 ml 680 ml 2330 ml Estimated Blood Loss 100 ml 10 ml 110 ml # Bowel Movements 0 0 Exam Gen: NAD, AOx1- Baseline, dementia. HEENT: NCAT, PERRLA, EOMI, MMM, sclera anicteric. Neck: Soft, supple, no thyromegaly/JVD/LAD. Resp: CTAB, no R/R/W. CV: S1 S2, RRR, No M/R/G Abd: Soft, (+) BS, NT/ND, no guarding/rebound/organomegaly. Ext: +PP, No edema. RUE- non-functional- baseline, R Thigh & Calf Soft/Nontender Lab and Diagnostics Result Diagram: 10/21/16 1015 10/20/16 0440 Microbiology Laboratory Tests Test 10/20/16 04:40 White Blood Count 8.5th/mm3 (3.8-10.1) Red Blood Count 3.15mil/mm3 (3.90-5.20) Hemoglobin 9.0g/dL (12.0-15.6) Hematocrit 27.6% (35.0-46.0) Mean Corpuscular Volume 87.6fL (81-100) Mean Corpuscular Hemoglobin 28.6pg (27.0-35.0) Mean Corpuscular Hemoglobin Concent 32.6% (32.0-37.0) Red Cell Distribution Width 14.6% (12.3-15.4) Platelet Count 247bil/L (150-400) Neutrophils (%) (Auto) 81.6% (40-74) Lymphocytes (%) (Auto) 8.7% (14-46) Monocytes (%) (Auto) 9.3% (4-12) Eosinophils (%) (Auto) 0.2% (0-5) Basophils (%) (Auto) 0.1% (0-3) Sodium Level 137mEq/L (134-144) Potassium Level 4.8mEq/L (3.5-5.2) Chloride Level 103mEq/L (97-108) Carbon Dioxide Level 21mmol/L (18-29) Blood Urea Nitrogen 30mg/dL (8-27) Creatinine 0.96mg/dL (0.57-1.00) Estimat Glomerular Filtration Rate 81mL/min (>59) Glucose Level 106mg/dL (60-99) Calcium Level 8.5mg/dL (8.5-10.1) Microbiology 10/19/16 Urine Culture - Preliminary, Resulted X-Rays, CTs and MRIs 10/19/16 0724 X-RAY PELVIS W/LAT HIP There is a comminuted intertrochanteric fracture of the proximal right femur with mild lateral and anterior displacement. There is also proximal migration with varus angulation. Pelvic ring appears intact. No suspicious bony lesions. Soft tissues: The visualized bowel gas pattern is normal. No suspicious soft tissue calcifications. IMPRESSION: 1. Comminuted and displaced right intertrochanteric fracture of the proximal femur as described. 10/19- X-RAY CHEST ONE VIEW, PORTABLE 1. Findings likely related to prior right upper lobectomy, with no prior postoperative films available for comparison. 2. Soft tissue fullness in the right hilum. Recurrent or metastatic disease cannot be excluded. Recommend comparison with prior outside studies or further evaluation with CT. Assessment & Plan 76 year old pleasant female with a history of Dementia, Alzheimer's disease, cancer with radiation treatment and has generalized weakness to the right side with no history of CVA, HTN, HLD, Hypothyroidism, presenting after mechanical ground level fall sustaining Right hip intertrochanteric fracture- #Right hip intertrochanteric fracture- POA, active. plan for Closed reduction intramedullary nail fixation. Surgery 10/21- Recs- Continue weightbearing as tolerated on the right lower extremity using appropriate assistive device per physical therapist. Continue formal physical therapy for mobility, gait and safety. Continue pain medication as needed moving to by mouth pain medication as soon as possible. Continue Xarelto 10 mg daily 35 days postop for DVT prophylaxis. Interoperative dressing will be changed by orthopedics on postop day #2 Social service order has been placed for discharge to halfway facility. #Fall from Ground Level, mechanical- POA, active.. Pt has baseline weakness or RUE/RLE per son. Needs assistance from chair, fall occurred during lift. Sustained R Hip Fx and R See plan above. #Acute Blood Loss Anemia, resolved.. s/p post-op. Pt hb has dec >2 points from baseline. +fatigued. Pt is also hypotensive and tachycardic. Will give 1u pRBC for symptomatic anemia. Can recheck HB in am. #ALEJO- present on admit, active. Scr 1.1 on admit->0.9. No known history of CKD. May be prerenal. Will continue with IVF. #UTI- pt has evidence of pyuria on UA. Due to dementia can't determine if Symptomatic. Will tx as UTI as undergoing surgery. Ceftriaxone for 3 days, started 10/19, unless longer course indicated. #Hx of Lung Cancer s/p RUL Lobectomy- chronic stable. CXR- Soft tissue fullness in the right hilum. Recurrent or metastatic disease cannot be excluded. Recommend comparison with prior outside studies or further evaluation with CT #Dementia- documented Alzeimer's and Parkinson's disease- chronic stable- obtained hm med from facility which is Carbidopa-Levodopa. Pharmacy has confirmed med rec and updated. Will start. - Ramelteon not carried on formulary, son will bring from facility. #HLD- chronic, stable. c/w hm med statin once can take PO. #Hypothyroidism- chronic, stable. c/w hm med Levothyroxine CODE- Full, per son who is DOA. Son will bring in advanced directives. Dispo - plan for d/c to SNF on 10/23 formal physical therapy for mobility, gait and safety. - Follow-up in 2 weeks at [facility] orthopedic clinic with Dr. Isma Anderson for wound check and suture removal - Follow-up in 6 weeks at [facility] orthopedic clinic with Dr. Christopher Sheu with right two-view femur x-rays on arrival GI Prophylaxis: H2 bertha (r) VTE Prophylaxis: Other (Xarelto 10 mg by mouth daily 35 days postop for DVT prophylaxis) VTE Mechanical Devices: Intermittant Pneumatic CD (LLE only ) Resuscitation Status: CPR: Attempt Resuscitation Cam Mauro MD Oct 21, 2016 13:40
--- NOTE | 2016-10-21 16:55 | NUR ---
Social Work: Initial Assessment/Multi-Disciplinary Rounds D: EMR reviewed. Please see Initial Assessment linked to this note for more information. Pt is an 76 y/o female admitted for right hip fracture per H&P. Pt has a readmit risk score of 3. PIO met with pt and son/DPWANDA Parada [phone] at bedside to conduct initial assessment. Pt is not an accurate historian. Pt has dementia at baseline. SW explained role and wrote phone number on white board. SW provided "Your Discharge Planning Checklist" and encouraged family to contact SW for any discharge planning questions. Pt's insurance is Medicare and [employer]. PCP is oJann Giordano PA-C. DPOA/advanced directive ppw discussed - ppw completed and SW encouraged pt to provide a copy to the hospital. Pt's son stated pt does not own or use any DME - attendants assist with all of pt's ADLs at [facility] where pt resides. Pt discussed in multidisciplinary rounds. Per multidisciplinary rounds, pt is not medically stable for discharge. PIO received MD order for SNF placement. SW discussed MD recommendations with pt's son and provided SNF choice list. SW will follow-up with pt's son regarding choice tomorrow and make referral(s). A: PIO assessed pt's capacity for self-care. Pt does not have capacity for self-care at baseline. Pt requires assistance with all ADLs and lives at [facility]. Pt's family agreeable to SNF at discharge and then back to [facility] once she has completed rehab at SNF. PIO discussed pt's capacity to retain information/teaching for skillable needs. Pt's son states that [facility] is open with pt for RN and PT and pt has made progress with right arm mobility with [facility]. Pt's son states that pt can retain information and would be appropriate for SNF. P: SW to follow-up with pt's SNF choice(s) tomorrow and make referral(s) accordingly. SW to update MD/PT in rounds regarding mobility PLOF. SW to update [facility] on pt's admission and SNF recommendation. NYDIA Laguna Addendum: 10/21/16 at 1711 by NIGHAT FELIX Amended: Links added.
--- NOTE | 2016-10-21 18:40 | NUR ---
Blood Pressure & HR, Home Medications, Blood Start Patient blood pressure continues to run in the 90s and low 100s this shift, heart rate in the upper 100 to low 110s. MD aware, patient asymptomatic at this time. Patient family member brought home Parkinson's medications, brought to pharmacist to be verified and found to be formulary. Medication returned to family member possession. Blood products started per MD orders without incident. Patient asymptomatic and denies any transfusion reaction symptoms. Will continue to monitor. Care is ongoing.
[2016-10-21] MEDS: cefTRIAXone Inj 1,000 MG in Dextrose 5% Minibag Plus 50 ML IV SCH (21:45)
[2016-10-22 00:37] VITALS: BP 117/70; PULSE 103; RESP 17; O2SAT 97
--- NOTE | 2016-10-22 04:49 | NUR ---
Shlomo score Upon shlomo skin assessment patient scored 11. A pressure protocol has been initiated. Q2 turns are being preformed. Sacrum is bruised. Barrier cream applied. Will continue to monitor and continue Q1 hour checks.
[2016-10-22] MEDS: Lactated Ringer's 1,000 ML IV SCH (04:57)
[2016-10-22 05:04] VITALS: BP 125/73; PULSE 110; RESP 16; O2SAT 96
[2016-10-22 05:38] LABS: BASOPHILS % (AUTO) 0.2 % (0-3); EOSINOPHILS % (AUTO) 1.7 % (0-5); MONOCYTES % (AUTO) 10.7 % (4-12); Mean Corpuscular Hemoglobin 29.1 pg (27.0-35.0); Platelet Count 172 bil/L (150-400)
[2016-10-22] MEDS: 0.9% Sodium Chloride 1,000 ML IV SCH (06:01)
[2016-10-22] MEDS: Insulin LISPRO 300 Unit/3 mL Inj SUBQ SCH ×4 (08:00→22:00)
--- NOTE | 2016-10-22 09:39 | PCM.PNORTH ---
Subjective Date of Service: Oct 22, 2016 Visit Information: Reason for Visit Rt Hip Fracture Surgery/Surgery Date Post-Op Day # 2 Date of Admission: Oct 19, 2016 at 14:35 Hospital Day # Subjective Patient states she is having no pain at this time. Patient is not very communicative and her son speaks on her behalf. He states she was not able to do much with PT and he is hoping she can go to a shelter facility near where he and his sister live. He states she has not complained of much pain that he has noticed. Postop General: No Complaints, No Shortness of Breath, No Chest Pain Pain Management: IV Push (Toradol) Objective Exam Objective Sitting up in bed, alert but very little verbal communication and slow to perform directed actions Vital Signs and I/O Vital Sign - Last Date Time Temp Pulse Resp B/P Pulse Ox O2 Delivery O2 Flow Rate FiO2 10/22/16 05:04 37.0 110 16 125/73 96 Room Air 10/21/16 19:34 4.00 Intake and Output 10/21/16 10/21/16 10/22/16 Cumulative From/Thru 15:00 23:00 07:00 10/19/16 17:07 - 10/22/16 05:57 Intake Total 2925 ml 400 ml 6752 ml Output Total 350 ml 300 ml 3090 ml Balance 2575 ml 100 ml 3662 ml Intake Oral 1486 ml 400 ml 2826 ml IV Total 1139 ml 3626 ml Packed Cells 300 ml 300 ml Output Urine Total 350 ml 300 ml 2980 ml Estimated Blood Loss 110 ml # Bowel Movements 0 0 Lab & Micro Results Laboratory Tests Test 10/21/16 10:15 10/22/16 04:50 White Blood Count 5.6th/mm3 (3.8-10.1) 6.0th/mm3 (3.8-10.1) Red Blood Count 2.54mil/mm3 (3.90-5.20) 2.85mil/mm3 (3.90-5.20) Hemoglobin 7.4g/dL (12.0-15.6) 8.3g/dL (12.0-15.6) Hematocrit 22.4% (35.0-46.0) 24.5% (35.0-46.0) Mean Corpuscular Volume 88.2fL (81-100) 86.0fL (81-100) Mean Corpuscular Hemoglobin 29.1pg (27.0-35.0) 29.1pg (27.0-35.0) Mean Corpuscular Hemoglobin Concent 33.0% (32.0-37.0) 33.9% (32.0-37.0) Red Cell Distribution Width 14.5% (12.3-15.4) 15.2% (12.3-15.4) Platelet Count 176bil/L (150-400) 172bil/L (150-400) Neutrophils (%) (Auto) 79.0% (40-74) 74.0% (40-74) Lymphocytes (%) (Auto) 8.2% (14-46) 13.2% (14-46) Monocytes (%) (Auto) 12.0% (4-12) 10.7% (4-12) Eosinophils (%) (Auto) 0.4% (0-5) 1.7% (0-5) Basophils (%) (Auto) 0% (0-3) 0.2% (0-3) Sodium Level 135mEq/L (134-144) Potassium Level 3.9mEq/L (3.5-5.2) Chloride Level 100mEq/L (97-108) Carbon Dioxide Level 22mmol/L (18-29) Blood Urea Nitrogen 19mg/dL (8-27) Creatinine 0.80mg/dL (0.57-1.00) Estimat Glomerular Filtration Rate 99mL/min (>59) Glucose Level 94mg/dL (60-99) Calcium Level 7.8mg/dL (8.5-10.1) Microbiology 10/19/16 Urine Culture - Final, Complete E. Coli Esbl Fretted Instrument Repairer Result Diagram: 10/22/1644910/22/16449 General Appearance: Cooperative, No Acute Distress Extremities: Distal Pulses Palpable, No Compartment Syndrom Noted, Tenderness/ Swelling Noted Postop Sensory Motor: Distal Motor Intact, Movement in Toes, NVI Distally SURGICAL WOUND : Wound Location/Description Perioperative dressings are c/d/i. Activity: Activity per PT, Ambulate with PT (weightbearing as tolerated on the right lower extremity. Note: Patient's right upper extremity is dysfunctional secondary to herpetic neuralgia suffered post cancer treatment. ) Catheters: Urethral 2 Way Kruse Assessment & Plan Impression Stopped day #2 right hip long IM nail Problems: Plan Patient does not communicate well verbally either but was cooperative and pleasant during exam. Son is concerned about her kruse being removed as she is still not ambulating well. Kruse should be removed as soon as patient is able to use the bedside commode. Continue weightbearing as tolerated on the right lower extremity using appropriate assistive device per physical therapist. Continue formal physical therapy for mobility, gait and safety. Continue pain medication please use Tylenol. Continue Xarelto 10 mg daily 35 days postop for DVT prophylaxis. Dressings will be changed to an island dressing today. Please apply thigh high compression stockings bilaterally. Follow-up in 2 weeks at [facility] orthopedic clinic with Dr. Isma reinoso for wound check and suture removal Follow-up in 6 weeks at [facility] orthopedic clinic with Dr. Isma reinoso with right two-view femur x-rays on arrival. Anticipate discharge to shelter facility by hospitalist service on postop day #3, 10/23/2016 VTE Prophylaxis: Other (Xarelto 10 mg by mouth daily 35 days postop for DVT prophylaxis) Resuscitation Status: CPR: Attempt Resuscitation Lucero Espinosa PA-C Oct 22, 2016 09:39
[2016-10-22] MEDS: Ketorolac 15 mg/mL Inj IVPUSH PRN (09:46)
[2016-10-22] MEDS: Senna-Docusate 8.6-50 mg Tablet PO SCH ×2 (09:46→20:33)
[2016-10-22 12:55] VITALS: BP 109/69; PULSE 106; RESP 18; O2SAT 97
[2016-10-22] MEDS ORDERED: LORazepam 0.5 mg Tablet PO PRN (13:00)
--- NOTE | 2016-10-22 13:02 | NUR ---
Dressing Change Changed dressing this AM on right hip and knee. Incisions looked well approximated, peggy intact, with no s/s of infection. Two small island dressings applied to both incisions on lateral right hip and two bandaids placed over knee incision. Minimal sanguineous drainage present on lower hip dressing. Otherwise dressings remain clean, dry, and intact.
--- NOTE | 2016-10-22 13:10 | PCM.PNMED ---
Subjective Date of Service Oct 22, 2016 Subjective Pt received 1u pRBC yesterday. Hb stable this am. Denies fever/chills/abd pain. Denies dysuria. Exam Vital Signs Vital Sign - Last Date Time Temp Pulse Resp B/P Pulse Ox O2 Delivery O2 Flow Rate FiO2 10/22/16 05:04 37.0 110 16 125/73 96 Room Air 10/21/16 19:34 4.00 Intake and Output 10/21/16 10/21/16 10/22/16 Cumulative From/Thru 15:00 23:00 07:00 10/19/16 17:07 - 10/22/16 05:57 Intake Total 2925 ml 400 ml 6752 ml Output Total 350 ml 300 ml 3090 ml Balance 2575 ml 100 ml 3662 ml Intake Oral 1486 ml 400 ml 2826 ml IV Total 1139 ml 3626 ml Packed Cells 300 ml 300 ml Output Urine Total 350 ml 300 ml 2980 ml Estimated Blood Loss 110 ml # Bowel Movements 0 0 Exam Exam Gen: NAD, AOx1-2- Baseline, dementia. HEENT: NCAT, PERRLA, EOMI, MMM, sclera anicteric. Neck: Soft, supple, no thyromegaly/JVD/LAD. Resp: CTAB, no R/R/W. CV: S1 S2, RRR, No M/R/G Abd: Soft, (+) BS, NT/ND, no guarding/rebound/organomegaly. Ext: +PP, No edema. RUE- non-functional- baseline, R Thigh & Calf Soft/Nontender IVs and Medications Medications Reviewed: Medications were reviewed in detail Lab and Diagnostics Result Diagram: 10/22/16 0450 10/22/16 0450 Microbiology Laboratory Tests Test 10/20/16 04:40 White Blood Count 8.5th/mm3 (3.8-10.1) Red Blood Count 3.15mil/mm3 (3.90-5.20) Hemoglobin 9.0g/dL (12.0-15.6) Hematocrit 27.6% (35.0-46.0) Mean Corpuscular Volume 87.6fL (81-100) Mean Corpuscular Hemoglobin 28.6pg (27.0-35.0) Mean Corpuscular Hemoglobin Concent 32.6% (32.0-37.0) Red Cell Distribution Width 14.6% (12.3-15.4) Platelet Count 247bil/L (150-400) Neutrophils (%) (Auto) 81.6% (40-74) Lymphocytes (%) (Auto) 8.7% (14-46) Monocytes (%) (Auto) 9.3% (4-12) Eosinophils (%) (Auto) 0.2% (0-5) Basophils (%) (Auto) 0.1% (0-3) Sodium Level 137mEq/L (134-144) Potassium Level 4.8mEq/L (3.5-5.2) Chloride Level 103mEq/L (97-108) Carbon Dioxide Level 21mmol/L (18-29) Blood Urea Nitrogen 30mg/dL (8-27) Creatinine 0.96mg/dL (0.57-1.00) Estimat Glomerular Filtration Rate 81mL/min (>59) Glucose Level 106mg/dL (60-99) Calcium Level 8.5mg/dL (8.5-10.1) Microbiology 10/19/16 Urine Culture - Preliminary, Resulted X-Rays, CTs and MRIs 10/19/16 0724 X-RAY PELVIS W/LAT HIP There is a comminuted intertrochanteric fracture of the proximal right femur with mild lateral and anterior displacement. There is also proximal migration with varus angulation. Pelvic ring appears intact. No suspicious bony lesions. Soft tissues: The visualized bowel gas pattern is normal. No suspicious soft tissue calcifications. IMPRESSION: 1. Comminuted and displaced right intertrochanteric fracture of the proximal femur as described. 10/19- X-RAY CHEST ONE VIEW, PORTABLE 1. Findings likely related to prior right upper lobectomy, with no prior postoperative films available for comparison. 2. Soft tissue fullness in the right hilum. Recurrent or metastatic disease cannot be excluded. Recommend comparison with prior outside studies or further evaluation with CT. Assessment & Plan 76 year old pleasant female with a history of Dementia, Alzheimer's disease, cancer with radiation treatment and has generalized weakness to the right side with no history of CVA, HTN, HLD, Hypothyroidism, presenting after mechanical ground level fall sustaining Right hip intertrochanteric fracture- #Right hip intertrochanteric fracture- POA, active. plan for Closed reduction intramedullary nail fixation. Surgery 10/21- Recs- Continue weightbearing as tolerated on the right lower extremity using appropriate assistive device per physical therapist. Continue formal physical therapy for mobility, gait and safety. Continue pain medication as needed by mouth Continue Xarelto 10 mg daily 35 days postop for DVT prophylaxis. #Fall from Ground Level, mechanical- POA, active.. Pt has baseline weakness or RUE/RLE per son. Needs assistance from chair, fall occurred during lift. Sustained R Hip Fx and R See plan above. #Acute Blood Loss Anemia, resolved.. s/p post-op. Pt hb has dec >2 points from baseline. +fatigued. Pt was also hypotensive and tachycardic. Given 1u pRBC on for symptomatic anemia. Hb stable on recheck. #ALEJO- present on admit, resolved. Scr 1.1 on admit. No known history of CKD. May be prerenal. Improved w/ IVF. #UTI- poa, resolved. Did not meet SIRS Criteria. afebrile, No leukocytosis. Was tachycardic. Urine Cx +ESBL. Given dementia intially hard to determine if symptomatic. - Pt was initially on Ceftriaxone. When Urine Cx showed +ESBL, single dose of Fosfomycin given to treat for possible UTI. - At this time given lack of symptoms, systemic signs of infection, we will hold off treating further. Low threshold to resume antibiotics. #Hx of Lung Cancer s/p RUL Lobectomy- chronic stable. CXR- Soft tissue fullness in the right hilum. Recurrent or metastatic disease cannot be excluded. Recommend comparison with prior outside studies or further evaluation with CT #Dementia- documented Alzeimer's and Parkinson's disease- chronic stable- obtained hm med from facility which is Carbidopa-Levodopa. Pharmacy has confirmed med rec and updated. Will start. - Ramelteon not carried on formulary, son will bring from facility. #HLD- chronic, stable. c/w hm med statin once can take PO. #Hypothyroidism- chronic, stable. c/w hm med Levothyroxine CODE- Full, per son who is DOA. Son will bring in advanced directives. Dispo - plan for d/c to SNF on 10/23 for physical therapy for mobility, gait and safety. - Follow-up in 2 weeks at [facility] orthopedic clinic with Dr. Isma Anderson for wound check and suture removal - Follow-up in 6 weeks at [facility] orthopedic clinic with Dr. Isma Anderson with right two-view femur x-rays on arrival - Continue Xarelto 10 mg daily 35 days postop for DVT prophylaxi GI Prophylaxis: H2 bertha (r) VTE Prophylaxis: Other (Xarelto 10 mg by mouth daily 35 days postop for DVT prophylaxis) VTE Mechanical Devices: Intermittant Pneumatic CD Resuscitation Status: CPR: Attempt Resuscitation Cam Mauro MD Oct 22, 2016 13:10
[2016-10-22] MEDS: HYDROcodone-APAP 5-325 mg Tablet PO PRN ×2 (14:53→20:32)
--- NOTE | 2016-10-22 17:58 | NUR ---
[facility] to make referral and follow-up with family.
--- NOTE | 2016-10-22 18:27 | NUR ---
Pain/Activity Patient continues to report no pain throughout shift but moans and yells when attempting to stand. Patient is a hard two-three person stand and pivot. She has been sitting in the chair for most of shift and tolerates it well. Pichardo catheter was DC'd this shift and patient has attempted to void in BSC. Pain was better managed this afternoon than this morning if you compare patient's vocal complaints with movement. Continuing to monitor pain level and premedicate before being up. Family at bedside. Hourly rounding continues.
[2016-10-22 21:40] VITALS: BP 109/64; PULSE 97; RESP 16; O2SAT 96
--- NOTE | 2016-10-23 01:35 | NUR ---
Pichardo catheter Dc'd @ 8165. 3 person total assist with gait belt was needed to transfer patient from chair to BSC to bed. Allowed patient adequate time to try to void on the BSC at approx 2100, but was unsuccessful. Bladder scan preformed at 2200 and indicated 312cc. At approx 0000 patient was checked again and her brief was wet. Brief had approx 200CC of urine. Will continue to monitor urine output and continue Q1 hour checks.
[2016-10-23 05:49] VITALS: BP 136/78; PULSE 109; RESP 17; O2SAT 96
[2016-10-23] MEDS: Insulin LISPRO 300 Unit/3 mL Inj SUBQ SCH ×2 (08:00→12:00)
[2016-10-23] MEDS: Senna-Docusate 8.6-50 mg Tablet PO SCH (08:09)
[2016-10-23] MEDS: HYDROcodone-APAP 5-325 mg Tablet PO PRN (08:10)
--- NOTE | 2016-10-23 10:02 | PCM.PNMED ---
Subjective Date of Service Oct 23, 2016 Subjective Patient did have some urinary retention last night after taking Pichardo. Did ultimately spontaneously void. No fevers chills. Pain minimal. Exam Vital Signs Vital Sign - Last Date Time Temp Pulse Resp B/P Pulse Ox O2 Delivery O2 Flow Rate FiO2 10/23/16 05:49 36.9 109 17 136/78 96 Room Air 10/21/16 19:34 4.00 Intake and Output 10/22/16 10/22/16 10/23/16 Cumulative From/Thru 15:00 23:00 07:00 10/19/16 17:07 - 10/23/16 06:20 Intake Total 927 ml 586 ml 270 ml 8535 ml Output Total 300 ml 410 ml 3800 ml Balance 927 ml 286 ml -140 ml 4735 ml Intake Oral 586 ml 270 ml 3682 ml IV Total 927 ml 4553 ml Packed Cells 300 ml Output Urine Total 300 ml 410 ml 3690 ml Estimated Blood Loss 110 ml # Bowel Movements 0 Exam Gen: NAD, AOx1-2- Baseline, dementia. HEENT: NCAT, PERRLA, EOMI, MMM, sclera anicteric. Neck: Soft, supple, no thyromegaly/JVD/LAD. Resp: CTAB, no R/R/W. CV: S1 S2, RRR, No M/R/G Abd: Soft, (+) BS, NT/ND, no guarding/rebound/organomegaly. Ext: +PP, No edema. RUE- non-functional- baseline, R Thigh & Calf Soft/Nontender IVs and Medications Medications Reviewed: Medications were reviewed in detail Lab and Diagnostics Result Diagram: 10/22/1644910/22/16 0450 Microbiology Laboratory Tests Test 10/20/16 04:40 White Blood Count 8.5th/mm3 (3.8-10.1) Red Blood Count 3.15mil/mm3 (3.90-5.20) Hemoglobin 9.0g/dL (12.0-15.6) Hematocrit 27.6% (35.0-46.0) Mean Corpuscular Volume 87.6fL (81-100) Mean Corpuscular Hemoglobin 28.6pg (27.0-35.0) Mean Corpuscular Hemoglobin Concent 32.6% (32.0-37.0) Red Cell Distribution Width 14.6% (12.3-15.4) Platelet Count 247bil/L (150-400) Neutrophils (%) (Auto) 81.6% (40-74) Lymphocytes (%) (Auto) 8.7% (14-46) Monocytes (%) (Auto) 9.3% (4-12) Eosinophils (%) (Auto) 0.2% (0-5) Basophils (%) (Auto) 0.1% (0-3) Sodium Level 137mEq/L (134-144) Potassium Level 4.8mEq/L (3.5-5.2) Chloride Level 103mEq/L (97-108) Carbon Dioxide Level 21mmol/L (18-29) Blood Urea Nitrogen 30mg/dL (8-27) Creatinine 0.96mg/dL (0.57-1.00) Estimat Glomerular Filtration Rate 81mL/min (>59) Glucose Level 106mg/dL (60-99) Calcium Level 8.5mg/dL (8.5-10.1) Microbiology 10/19/16 Urine Culture - Preliminary, Resulted X-Rays, CTs and MRIs 10/19/16 0724 X-RAY PELVIS W/LAT HIP There is a comminuted intertrochanteric fracture of the proximal right femur with mild lateral and anterior displacement. There is also proximal migration with varus angulation. Pelvic ring appears intact. No suspicious bony lesions. Soft tissues: The visualized bowel gas pattern is normal. No suspicious soft tissue calcifications. IMPRESSION: 1. Comminuted and displaced right intertrochanteric fracture of the proximal femur as described. 10/19- X-RAY CHEST ONE VIEW, PORTABLE 1. Findings likely related to prior right upper lobectomy, with no prior postoperative films available for comparison. 2. Soft tissue fullness in the right hilum. Recurrent or metastatic disease cannot be excluded. Recommend comparison with prior outside studies or further evaluation with CT. Assessment & Plan 76 year old pleasant female with a history of Dementia, Alzheimer's disease, cancer with radiation treatment and has generalized weakness to the right side with no history of CVA, HTN, HLD, Hypothyroidism, presenting after mechanical ground level fall sustaining Right hip intertrochanteric fracture- #Right hip intertrochanteric fracture- POA, active. plan for Closed reduction intramedullary nail fixation. Surgery Discharge Recs- Continue weightbearing as tolerated on the right lower extremity using appropriate assistive device per physical therapist. Continue formal physical therapy for mobility, gait and safety. Continue pain medication as needed by mouth. Receiving [place]. Continue Xarelto 10 mg daily 35 days postop for DVT prophylaxis. #Fall from Ground Level, mechanical- POA, active.. Pt has baseline weakness or RUE/RLE per son. Needs assistance from chair, fall occurred during lift. Sustained R Hip Fx and R See plan above. #Acute Blood Loss Anemia, resolved.. s/p post-op. Pt hb has dec >2 points from baseline. +fatigued. Pt was also hypotensive and tachycardic. Given 1u pRBC on for symptomatic anemia. Hb stable on recheck. #ALEJO- present on admit, resolved. Scr 1.1 on admit. No known history of CKD. May be prerenal. Improved w/ IVF. #UTI- poa, resolved. Did not meet SIRS Criteria. afebrile, No leukocytosis. Was tachycardic. Urine Cx +ESBL. Given dementia intially hard to determine if symptomatic. - Pt was initially on Ceftriaxone. When Urine Cx showed +ESBL, single dose of Fosfomycin given to treat for possible UTI. - At this time given lack of symptoms, systemic signs of infection, we will hold off treating further. Low threshold to resume antibiotics. #Hx of Lung Cancer s/p RUL Lobectomy- chronic stable. CXR- Soft tissue fullness in the right hilum. Recurrent or metastatic disease cannot be excluded. Recommend comparison with prior outside studies or further evaluation with CT #Dementia- documented Alzeimer's and Parkinson's disease- chronic stable- obtained hm med from facility which is Carbidopa-Levodopa. Pharmacy has confirmed med rec and updated. Will start. - Ramelteon not carried on formulary, son will bring from facility. #HLD- chronic, stable. c/w hm med statin once can take PO. #Hypothyroidism- chronic, stable. c/w hm med Levothyroxine CODE- Full, per son who is DOA. Son will bring in advanced directives. Dispo - plan for d/c to SNF for physical therapy for mobility, gait and safety. - Continue weightbearing as tolerated on the right lower extremity using appropriate assistive device per physical therapist. - Continue pain medication as needed by mouth. Receiving [place]. - Continue Xarelto 10 mg daily 35 days postop for DVT prophylaxis - Follow-up in 2 weeks at [facility] orthopedic clinic with Dr. Isma Anderson for wound check and suture removal - Follow-up in 6 weeks at [facility] orthopedic clinic with Dr. Isma Anderson with right two-view femur x-rays on arrival - Continue Xarelto 10 mg daily 35 days postop for DVT prophylaxi - If febrile can Start Levofloxacin for UTI as her Urine Culture shows resistant Ecoli that is sensitive to this antibiotic with STEFFI 0.12 . GI Prophylaxis: H2 bertha (r) VTE Prophylaxis: Other (Xarelto 10 mg by mouth daily 35 days postop for DVT prophylaxis) VTE Mechanical Devices: Anti-Embolic stockings Resuscitation Status: CPR: Attempt Resuscitation Cam Mauro MD Oct 23, 2016 10:02
--- NOTE | 2016-10-23 10:05 | PCM.DIMED ---
Discharge Instructions Date of Service Oct 23, 2016 Dates of Hospitalization Oct 19, 2016 at 14:35 Discharge Diagnosis Discharge Diagnosis #Right hip intertrochanteric fracture- POA, active. plan for Closed reduction intramedullary nail fixation. #Fall from Ground Level, mechanical- POA, active.. Pt has baseline weakness or RUE/RLE per son. Needs assistance from chair, fall occurred during lift. Sustained R Hip Fx and R See plan above. #Acute Blood Loss Anemia, resolved #ALEJO- present on admit, resolved. #UTI due to Ecoli- poa, resolved. #Urinary Incontinence- chronic, present on admit. #Hx of Lung Cancer s/p RUL Lobectomy- chronic stable. #Dementia- documented Alzeimer's and Parkinson's disease- chronic stable- o #HLD- chronic, stable. #Hypothyroidism- chronic, stable. Medication Instructions Additional med instructions - Continue Xarelto 10 mg daily 35 days postop for DVT prophylaxi - If febrile can Start Levofloxacin for UTI as her Urine Culture shows resistant Ecoli that is sensitive to this antibiotic with STEFFI 0.12 - Continue pain medication as needed by mouth. Receiving [place]. Patient Instructions Patient Instructions - Discharge to [facility] for physical therapy for mobility, gait and safety. - Continue weightbearing as tolerated on the right lower extremity using appropriate assistive device per physical therapist. - If febrile can Start Levofloxacin for UTI as her Urine Culture shows resistant Ecoli that is sensitive to this antibiotic with STEFFI 0.12 Follow-up plan - Follow-up in 2 weeks at [facility] orthopedic clinic with Dr. Isma Anderson for wound check and suture removal - Follow-up in 6 weeks at [facility] orthopedic clinic with Dr. Isma Anderson with right two-view femur x-rays on arrival Provider: Isma Anderson MD Follow-up in: 2 weeks Cam Mauro MD Oct 23, 2016 10:05
[2016-10-23] MEDS ORDERED: CARB1TAB14 PO (10:08)
[2016-10-23] MEDS ORDERED: LORA1TAB PO (10:08)
[2016-10-23] MEDS ORDERED: RIVA10TA PO (10:08)
[2016-10-23] MEDS ORDERED: HYDR-4003 PO (10:08)
--- NOTE | 2016-10-23 10:10 | PCM.PNORTH ---
Subjective Date of Service: Oct 23, 2016 Visit Information: Reason for Visit Rt Hip Fracture Surgery/Surgery Date Post-Op Day # 3 Date of Admission: Oct 19, 2016 at 14:35 Hospital Day # Subjective Patient is nonverbal today. Son states he is worried she will have difficulty when transferred as many bathrooms have handles on the right hand side and she has right sided weakness. He is hoping to get transferred somewhere that has bilateral or left handed hand rails. Postop General: No Complaints, No Shortness of Breath, No Chest Pain Pain Management: IV Push (Toradol) Objective Exam Objective Patient sitting in bed Vital Signs and I/O Vital Sign - Last Date Time Temp Pulse Resp B/P Pulse Ox O2 Delivery O2 Flow Rate FiO2 10/23/16 05:49 36.9 109 17 136/78 96 Room Air 10/21/16 19:34 4.00 Intake and Output 10/22/16 10/22/16 10/23/16 Cumulative From/Thru 15:00 23:00 07:00 10/19/16 17:07 - 10/23/16 06:20 Intake Total 927 ml 586 ml 270 ml 8535 ml Output Total 300 ml 410 ml 3800 ml Balance 927 ml 286 ml -140 ml 4735 ml Intake Oral 586 ml 270 ml 3682 ml IV Total 927 ml 4553 ml Packed Cells 300 ml Output Urine Total 300 ml 410 ml 3690 ml Estimated Blood Loss 110 ml # Bowel Movements 0 Lab & Micro Results Microbiology 10/19/16 Urine Culture - Final, Complete E. Coli Esbl Cable Installer Repairer Result Diagram: 10/22/16 0450 10/22/16 0450 General Appearance: Cooperative, No Acute Distress Extremities: Distal Pulses Palpable, No Compartment Syndrom Noted Postop Sensory Motor: Distal Motor Intact, Movement in Toes, NVI Distally SURGICAL WOUND : Wound Location/Description [place] dressing is mildly saturated but intact. No erythema or ecchymosis. Activity: Activity per PT, Ambulate with PT (weightbearing as tolerated on the right lower extremity. Note: Patient's right upper extremity is dysfunctional secondary to herpetic neuralgia suffered post cancer treatment. ) Assessment & Plan Impression POD#3 right hip long nail Problems: Plan Patient has right upper extremity weakness and is unable to use safety bars with her right hand. She will require bilateral or left handed hand rails in her bathroom and any other place in which she needs to get up from a seated position or steady herself. Continue weightbearing as tolerated on the right lower extremity using appropriate assistive device per physical therapist. Continue formal physical therapy for mobility, gait and safety. Continue pain medication please use Tylenol. Continue Xarelto 10 mg daily 35 days postop for DVT prophylaxis. Dressing should be changed before discharge as it was mildly saturated. Change as needed in the future. Continue thigh high compression stockings during the day (may remove at night if desired). Follow-up in 2 weeks at [facility] orthopedic clinic with Dr. Isma Anderson for wound check and suture removal Follow-up in 6 weeks at [facility] orthopedic clinic with Dr. Isma Anderson with right two-view femur x-rays on arrival. Anticipate discharge to detention facility for PT and OT rehabilitation by hospitalist when medically cleared. Orthopedics will sign off. VTE Prophylaxis: Other (Xarelto 10 mg by mouth daily 35 days postop for DVT prophylaxis) Resuscitation Status: CPR: Attempt Resuscitation Lucero Espinosa PA-C Oct 23, 2016 10:10
--- NOTE | 2016-10-23 11:13 | NUR ---
Social Work: Readiness for Discharge/Multidisciplinary Rounds D: EMR reviewed. Pt is on day 4 of hospitalization. Pt discussed in multidisciplinary rounds. Per multidisciplinary rounds, pt is ready for discharge to SNF ([facility]) today via wheelchair van. Per ortho, pt must have left side grab bar next to toilet in room at SNF due to decreased mobility in right arm. Pt's son requested private room. SW [facility] and noted need to left side grab bar next to toilet and request for private room. PIO received T/C from [facility] confirming they will accept pt today and pt will be in a semi-private room, alone. Pt will not have another pt in room and pt likely to transfer to private room once available. [facility] confirmed pt will be in room 313-B which has a toilet with a left side grab bar. [facility] confirmed [facility] will transport pt via wheelchair van at 1430 today. PIO updated family and RN, all agreeable to plan. PIO faxed [facility] and discharge orders. PIO to complete transfer packet and leave with UA for transfer. A: Pt for whom a SNF is medically necessary P: Pt to discharge to [facility] via [facility] transport at 1430 today. RN and family updated. All agreeable. PIO faxed [facility] and discharge orders. PIO to complete transfer packet and leave with [facility] for transport. PIO will continue to follow. NYDIA Laguna
--- NOTE | 2016-10-23 12:07 | NUR ---
Social Work: Discharge D: EMR reviewed. Pt is on day 4 of hospitalization. SNF transfer packet complete and left at RN station - UA and RN updated on 1430 transport time. Tori from [facility] confirmed pt will be in room 313-B which has a toilet with a left side grab bar. Tori confirmed [facility] will transport pt via wheelchair van at 1430 today. PIO updated family and RN, all agreeable to plan. SW faxed [facility] and discharge orders and confirmed receipt. Transfer packet complete with hard rx included. All update and agreeable to discharge plan and transport time. A: Pt for whom a SNF is medically necessary P: Pt to discharge to [facility] via [facility] transport at 1430 today. RN and family updated. All agreeable. PIO faxed [facility] and discharge orders. IPO completed SNF transfer packet and left at RN station - UA updated on transport time. PIO will continue to follow until time of transport. NYDIA Laguna
[2016-10-23] MEDS ORDERED: Ondansetron 2 mg/mL 2 mL Inj IVPUSH ONE (12:20)
--- NOTE | 2016-10-23 13:00 | NUR ---
Nausea Patient became nauseous right before lunch and had one episode of emesis on her self. Reported feeling better after vomiting. Antiemetic order received and administered. Patient reported slight change in nausea but still stated her stomach felt upset. She was unable to eat anything for lunch. Withheld noon medications due to likelihood of another episode of emesis.
--- NOTE | 2016-10-23 13:50 | NUR ---
Activity Patient has been up in chair for most of shift and is tolerating sitting well. Reports some mild discomfort occasionally. Transfer was a 3 person max assist with the gait belt. Patient is unable to follow commands and stand erect. Tolerated using the BSC but continues to be unable to void much in BSC. Has been incontinent of urine. [place] alarm in place. Call light within reach. Family at bedside.
--- NOTE | 2016-10-23 14:39 | NUR ---
Discharge Patient discharged to [facility] via transport van in a wheel chair. Transferred via 3 person max assist from chair to wheelchair. Denied pain and nausea prior to DC. IV DC'd intact. Packet went with patient and personal belongings went home with family. Report called to DEVI Null at [facility].
--- NOTE | 2016-10-23 17:03 | PCM.DC.MED ---
Discharge Summary Date of Service Oct 23, 2016 Dates of Hospitalization Date of Hospital Admission Oct 19, 2016 at 14:35 Date of Discharge: Oct 23, 2016 Providers: Admitting Physician: Rivas Martinez MD Primary Care Physician: Maria Ines Giordano PA-C Attending Physician: Rivas Martinez MD Diagnosis at Time of Discharge Diagnosis at Time of Discharge #Right hip intertrochanteric fracture- POA, active. plan for Closed reduction intramedullary nail fixation. #Fall from Ground Level, mechanical- POA, active.. Pt has baseline weakness or RUE/RLE per son. Needs assistance from chair, fall occurred during lift. Sustained R Hip Fx and R See plan above. #Acute Blood Loss Anemia, resolved #ALEJO- present on admit, resolved. #UTI due to Ecoli- poa, resolved. #Urinary Incontinence- chronic, present on admit. #Hx of Lung Cancer s/p RUL Lobectomy- chronic stable. #Dementia- documented Alzeimer's and Parkinson's disease- chronic stable- o #HLD- chronic, stable. #Hypothyroidism- chronic, stable. Procedures XRay, CTs & MRIs 10/19/16 0724 X-RAY PELVIS W/LAT HIP There is a comminuted intertrochanteric fracture of the proximal right femur with mild lateral and anterior displacement. There is also proximal migration with varus angulation. Pelvic ring appears intact. No suspicious bony lesions. Soft tissues: The visualized bowel gas pattern is normal. No suspicious soft tissue calcifications. IMPRESSION: 1. Comminuted and displaced right intertrochanteric fracture of the proximal femur as described. 10/19- X-RAY CHEST ONE VIEW, PORTABLE 1. Findings likely related to prior right upper lobectomy, with no prior postoperative films available for comparison. 2. Soft tissue fullness in the right hilum. Recurrent or metastatic disease cannot be excluded. Recommend comparison with prior outside studies or further evaluation with CT. Brief History 76 year old pleasant female with a history of Dementia, Alzheimer's disease, cancer with radiation treatment and has generalized weakness to the right side with no history of CVA, HTN, HLD, Hypothyroidism, presenting after mechanical ground level fall sustaining injury to Right Hip and Right Upper Extremity. Pt was being assisted from bed to chair and caregiver lost a hold of her. She did hit her head, No LOC. Pt lives at [facility]. Pt was initially seen in Ortho Office. RLE found to be shortened with suspicion of fracture. Hospital Course 76 year old pleasant female with a history of Dementia, Alzheimer's disease, cancer with radiation treatment and has generalized weakness to the right side with no history of CVA, HTN, HLD, Hypothyroidism, presenting after mechanical ground level fall sustaining Right hip intertrochanteric fracture- #Right hip intertrochanteric fracture- POA, active. plan for Closed reduction intramedullary nail fixation. Surgery Discharge Recs- Continue weightbearing as tolerated on the right lower extremity using appropriate assistive device per physical therapist. Continue formal physical therapy for mobility, gait and safety. Continue pain medication as needed by mouth. Receiving [facility]. Continue Xarelto 10 mg daily 35 days postop for DVT prophylaxis. #Fall from Ground Level, mechanical- POA, active.. Pt has baseline weakness or RUE/RLE per son. Needs assistance from chair, fall occurred during lift. Sustained R Hip Fx and R See plan above. #Acute Blood Loss Anemia, resolved.. s/p post-op. Pt hb has dec >2 points from baseline. +fatigued. Pt was also hypotensive and tachycardic. Given 1u pRBC on for symptomatic anemia. Hb stable on recheck. #ALEJO- present on admit, resolved. Scr 1.1 on admit. No known history of CKD. May be prerenal. Improved w/ IVF. #UTI- poa, resolved. Did not meet SIRS Criteria. afebrile, No leukocytosis. Was tachycardic. Urine Cx +ESBL. Given dementia intially hard to determine if symptomatic. - Pt was initially on Ceftriaxone. When Urine Cx showed +ESBL, single dose of Fosfomycin given to treat for possible UTI. - At this time given lack of symptoms, systemic signs of infection, we will hold off treating further. Low threshold to resume antibiotics. #Hx of Lung Cancer s/p RUL Lobectomy- chronic stable. CXR- Soft tissue fullness in the right hilum. Recurrent or metastatic disease cannot be excluded. Recommend comparison with prior outside studies or further evaluation with CT #Dementia- documented Alzeimer's and Parkinson's disease- chronic stable- obtained med from facility which is Carbidopa-Levodopa. Pharmacy has confirmed med rec and updated. Will start. - Ramelteon not carried on formulary, son will bring from facility. #HLD- chronic, stable. c/w hm med statin once can take PO. #Hypothyroidism- chronic, stable. c/w hm med Levothyroxine CODE- Full, per son who is DOA. Son will bring in advanced directives. Dispo - plan for d/c to [facility] for physical therapy for mobility, gait and safety. - Continue weightbearing as tolerated on the right lower extremity using appropriate assistive device per physical therapist. - Continue pain medication as needed by mouth. Receiving [facility]. - Continue Xarelto 10 mg daily 35 days postop for DVT prophylaxis - Follow-up in 2 weeks at [facility] orthopedic clinic with Dr. Isma Anderson for wound check and suture removal - Follow-up in 6 weeks at [facility] orthopedic clinic with Dr. Isma Anderson with right two-view femur x-rays on arrival - Continue Xarelto 10 mg daily 35 days postop for DVT prophylaxi - If febrile can Start Levofloxacin for UTI as her Urine Culture shows resistant Ecoli that is sensitive to this antibiotic with STEFFI 0.12 . Exam Vital Signs (Last) Date Time Temp Pulse Resp B/P Pulse Ox O2 Delivery O2 Flow Rate FiO2 10/23/16 10:24 Room Air 10/23/16 05:49 36.9 109 17 136/78 96 10/21/16 19:34 4.00 Test 10/19/16 08:36 10/19/16 14:00 10/20/16 04:40 10/22/16 04:50 Prothrombin Time 10.7sec (8.1-12.5) Prothromb Time International Ratio 1.00ratio Activated Partial Thromboplast Time 30.1sec (22.8-33.0) Total Bilirubin 0.2mg/dL (0.0-1.2) Aspartate Amino Transf (AST/SGOT) 16U/L (0-50) Alanine Aminotransferase (ALT/SGPT) 5U/L (0-32) Alkaline Phosphatase 109U/L (25-165) Total Protein 5.9g/dL (6.4-8.4) Albumin 3.6g/dL (3.4-5.0) Urine Color Straw (YELLOW) Urine Appearance Slightly cloudy Urine pH 5.5 (5.0-8.0) Urine Specific [place] 1.020 (1.003-1.035) Urine Protein Negativemg/dL (NEG,TRACE) Urine Glucose (UA) Negativemg/dL (NEGATIVE) Urine Ketones Negativemg/dL (NEGATIVE) Urine Occult Blood Negative (NEGATIVE) Urine Nitrite Positive (NEGATIVE) Urine Bilirubin Negative (NEGATIVE) Urine Urobilinogen Normalmg/dL (NORMAL) Urine Leukocyte Esterase Moderate (NEGATIVE) Urine RBC 0-2/hpf (0-2) Urine WBC >50/hpf (0-5) Urine Epithelial Cells Occasional/hpf (NONE-MOD) Urine Crystals None seen (NONE SEEN) Urine Bacteria Many/hpf (NONE-FEW) Urine Hyaline Casts None/lpf (NONE) Urine Granular Casts None seen (NONE SEEN) Urine Waxy Casts None seen (NONE SEEN) Urine Red Blood Cell Casts None seen (NONE SEEN) Urine White Blood Cell Casts None seen (NONE SEEN) Urine Mucus Present (None Seen) Urine Trichomonas None seen (NONE SEEN) Urine Yeast None (NONE SEEN) Urinalysis Comment None Urine Culture Reflexed Indicated Hemoglobin A1c 5.5% (4.8-5.6) White Blood Count 6.0th/mm3 (3.8-10.1) Red Blood Count 2.85mil/mm3 (3.90-5.20) Hemoglobin 8.3g/dL (12.0-15.6) Hematocrit 24.5% (35.0-46.0) Mean Corpuscular Volume 86.0fL (81-100) Mean Corpuscular Hemoglobin 29.1pg (27.0-35.0) Mean Corpuscular Hemoglobin Concent 33.9% (32.0-37.0) Red Cell Distribution Width 15.2% (12.3-15.4) Platelet Count 172bil/L (150-400) Neutrophils (%) (Auto) 74.0% (40-74) Lymphocytes (%) (Auto) 13.2% (14-46) Monocytes (%) (Auto) 10.7% (4-12) Eosinophils (%) (Auto) 1.7% (0-5) Basophils (%) (Auto) 0.2% (0-3) Sodium Level 135mEq/L (134-144) Potassium Level 3.9mEq/L (3.5-5.2) Chloride Level 100mEq/L (97-108) Carbon Dioxide Level 22mmol/L (18-29) Blood Urea Nitrogen 19mg/dL (8-27) Creatinine 0.80mg/dL (0.57-1.00) Estimat Glomerular Filtration Rate 99mL/min (>59) Glucose Level 94mg/dL (60-99) Calcium Level 7.8mg/dL (8.5-10.1) Microbiology Results Laboratory Tests Test 10/20/16 04:40 White Blood Count 8.5th/mm3 (3.8-10.1) Red Blood Count 3.15mil/mm3 (3.90-5.20) Hemoglobin 9.0g/dL (12.0-15.6) Hematocrit 27.6% (35.0-46.0) Mean Corpuscular Volume 87.6fL (81-100) Mean Corpuscular Hemoglobin 28.6pg (27.0-35.0) Mean Corpuscular Hemoglobin Concent 32.6% (32.0-37.0) Red Cell Distribution Width 14.6% (12.3-15.4) Platelet Count 247bil/L (150-400) Neutrophils (%) (Auto) 81.6% (40-74) Lymphocytes (%) (Auto) 8.7% (14-46) Monocytes (%) (Auto) 9.3% (4-12) Eosinophils (%) (Auto) 0.2% (0-5) Basophils (%) (Auto) 0.1% (0-3) Sodium Level 137mEq/L (134-144) Potassium Level 4.8mEq/L (3.5-5.2) Chloride Level 103mEq/L (97-108) Carbon Dioxide Level 21mmol/L (18-29) Blood Urea Nitrogen 30mg/dL (8-27) Creatinine 0.96mg/dL (0.57-1.00) Estimat Glomerular Filtration Rate 81mL/min (>59) Glucose Level 106mg/dL (60-99) Calcium Level 8.5mg/dL (8.5-10.1) Microbiology 10/19/16 Urine Culture - Preliminary, Resulted Discharge Medications Discharge Medications Carbidopa/Levodopa 25-100 mg (Carbidopa/Levodopa 25-100 mg) 1 Each Tablet 1 TABLET PO TIDWM Prescribed by: RIVAS MARTINEZ MD Cetirizine HCl (All Day Allergy) 10 Mg Tab.chew 10 MG PO MORNING (Reported) Levothyroxine (Levothyroxine) 50 Mcg Tablet 50 MCG PO DAILY (Reported) Ramelteon (Rozerem) 8 Mg Tablet 8 MG PO HS (Reported) Rivaroxaban (Xarelto) 10 Mg Tablet 10 MG PO DAILY Prescribed by: RIVAS MARTINEZ MD Rosuvastatin Calcium (Rosuvastatin Calcium) 5 Mg Tablet 5 MG PO DAILY (Reported ) As needed Acetaminophen (Acetaminophen) 500 Mg Capsule 500 MG PO Q4H PRN PRN For Pain ( Reported) Docusate Sodium (Colace) 100 Mg Capsule 100 MG PO HS PRN PRN For Constipation ( Reported) Hydrocodone-Acetaminophen 5-325 mg (Hydrocodone-Acetaminophen 5-325 mg) 1 Each Tablet 1-2 TABLET PO Q4H PRN PRN For Moderate Pain Prescribed by: RIVAS MARTINEZ MD Lorazepam (Lorazepam) 1 Mg Tablet 0.5 MG PO HS PRN PRN For Insomnia Prescribed by: RIVAS MARTINEZ MD Sennosides (Senna) 8.6 Mg Tablet 17.2 MG PO HS PRN PRN For Constipation ( Reported) Additional med instructions - Continue Xarelto 10 mg daily 35 days postop for DVT prophylaxi - If febrile can Start Levofloxacin for UTI as her Urine Culture shows resistant Ecoli that is sensitive to this antibiotic with STEFFI 0.12 - Continue pain medication as needed by mouth. Receiving [facility]. Followup Plan Disposition: [facility] Follow-up plan - Follow-up in 2 weeks at [facility] orthopedic clinic with Dr. Isma Anderson for wound check and suture removal - Follow-up in 6 weeks at [facility] orthopedic clinic with Dr. Isma Anderson with right two-view femur x-rays on arrival Patient Instructions - Discharge to [facility] for physical therapy for mobility, gait and safety. - Continue weightbearing as tolerated on the right lower extremity using appropriate assistive device per physical therapist. - If febrile can Start Levofloxacin for UTI as her Urine Culture shows resistant Ecoli that is sensitive to this antibiotic with STEFFI 0.12 Provider: Isma Anderson MD Follow-up in: 2 weeks Rivas Martinez MD Oct 23, 2016 17:03
== END 2016-10-23 14:31 | DRG 481 ==
LOC: EDUNIT# 07:03 → SED 07:03 → EDBD 07:03 → OSC 14:35
PROVIDERS: ADMIT Internal Medicine; ATTEND Internal Medicine
PROC: 0QS636Z Reposition Right Upper Femur with Intramedullary Internal Fixation Device, Percutaneous Approach (ICD-10-PCS; principal; 2016-10-20 13:00)
PROC: 30233N1 Transfusion of Nonautologous Red Blood Cells into Peripheral Vein, Percutaneous Approach (ICD-10-PCS; 2016-10-21)
DX: S72.141A Displaced intertrochanteric fracture of right femur, initial encounter for closed fracture (principal); N39.0 Urinary tract infection, site not specified; N17.9 Acute kidney failure, unspecified; D62 Acute posthemorrhagic anemia; G30.9 Alzheimer's disease, unspecified; F02.80 Dementia in other diseases classified elsewhere, unspecified severity, without behavioral disturbance, psychotic disturbance, mood disturbance, and anxiety; W06.XXXA Fall from bed, initial encounter; Y93.89 Activity, other specified; Y92.122 Bedroom in nursing home as the place of occurrence of the external cause; S40.811A Abrasion of right upper arm, initial encounter; S00.81XA Abrasion of other part of head, initial encounter; R53.1 Weakness; B94.8 Sequelae of other specified infectious and parasitic diseases; I10 Essential (primary) hypertension; E78.5 Hyperlipidemia, unspecified; E03.9 Hypothyroidism, unspecified; Z85.118 Personal history of other malignant neoplasm of bronchus and lung; Z90.2 Acquired absence of lung [part of]